=== PATIENT | male | born 1990 | race Caucasian/White ===

== ENCOUNTER 2020-01-11 11:36 | Emergency (ER) | payer SELFPAY ==
--- NOTE | ~2020-01-11 | XR_ITS ---
XR chest 2V DATE: 01/11/2020 12:03 INDICATION: Fever, cough, body aches for 4 hours TECHNIQUE: PA and lateral views COMPARISON: 04/08/2019 2 view chest FINDINGS: Normal heart size. No hilar or mediastinal enlargement. No pulmonary infiltrate or consolid ation, pleural effusion or pulmonary vascular congestion or pneumothorax. IMPRESSION: No active cardiopulmonary disease Reviewed, dictated and finalized at location A.
--- NOTE | 2020-01-11 11:43 | ED.FEVER ---
HPI - Fever General Chief Complaint: Fever Stated Complaint: Body Aches - Fever Time Seen by Provider: 01/11/20 11:42 Source: patient and RN notes reviewed Mode of arrival: other Limitations: no limitations History of Present Illness HPI Narrative: Pt is a 29 y/o male who presents to the ED with c/o a 103 degree fever that began this morning. Pt notes that he took some Dayquil that minimally relieved his fever. Pt also reports 5/10 body aches and a dry cough, but denies chills, sore throat, chest pain, dyspnea, nasal discharge, nausea, vomiting, and dysuria. MD elicited complaint: fever Onset (ago): hour(s) Measured temperature: 39.4 C Associated symptoms: myalgias and cough (dry) Treatments prior to arrival fever: cold medicine Related Data Allergies Allergy/AdvReac Type Severity Reaction Status Date / Time Sulfa (Sulfonamide Allergy Mild Rash Verified 01/11/20 11:53 Antibiotics) Review of Systems Review of Systems: All systems reviewed & are unremarkable except as noted in HPI and below Constitutional: Constitutional: Denies chills and Reports fever(s) (103 degrees) ENT: Denies nasal discharge and Denies sore throat Cardiovascular: Cardiovascular: Denies chest pain Respiratory: Respiratory: Denies dyspnea Gastrointestinal: Gastrointestinal: Denies nausea and Denies vomiting Genitourinary: Genitourinary: Denies dysuria Musculoskeletal: Musculoskeletal: Reports myalgias PMFSH Past Medical History Medical History (Updated 01/12/20 @ 00:01 by Jocelin Mcpherson) Hand fracture, right MRSA (methicillin resistant Staphylococcus aureus) right lower leg Osteomyelitis Pneumonia Surgical History Surgical History (Updated 01/11/20 @ 11:57 by Patrica Shields) History of orthopedic surgery right hand, right leg Social History Social History (Updated 01/11/20 @ 11:57 by Patrica Shields) Smoking packs per day: 1 Smoking cigarettes per day: 20.0 Years smoked: 8 Smoking pack-years: 8.00 Smoking status: Former smoker Tobacco type: cigarettes Exam Const: General: no acute distress and well developed Orientation/consciousness: oriented to person, oriented to place, oriented to time and patient oriented x3 HENMT: Head: normocephalic Ears: external ears normal General nose exam: Normal external nose present Eyes: General: appearance normal, both eyes and all related structures Conjunctivae: conjunctivae normal Neck: Neck: normal visual inspection and full ROM Chest: Chest palpation & inspection: normal inspection of the chest and no tenderness Resp: Effort & Inspection: normal respiratory effort Auscultation: clear to auscultation bilaterally Cardio: Rate: tachycardic Rhythm: regular rhythm Skin: General skin exam: normal color and turgor normal Neuro: General: oriented to person, oriented to place, oriented to time and patient oriented x3 Cognition (Neuro): normal cognition Extrem: General: normal to inspection, full ROM and no pedal edema Psych: Appearance: grossly normal Mental Status: mental status grossly normal Affect: normal affect Course Reevaluation(s) Reevaluation #1: Informed patient that his symptoms may be due to viral illness, possibly flu, although rapid flu test is negative at this time. Will treat with Tamiflu empirically. Instructed patient to return if symptoms worsen. Date: 01/11/20 Time: 14:01 Vital Signs Vital signs: Vital Signs Temperature 39.1 C H 01/11/20 11:50 Pulse Rate 112 H 01/11/20 11:50 Respiratory Rate 20 01/11/20 11:50 Blood Pressure 140/70 01/11/20 11:50 Pulse Oximetry 100 01/11/20 11:50 Temperature 37.6 C H 01/11/20 13:46 Pulse Rate 102 H 01/11/20 13:46 Respiratory Rate 18 01/11/20 13:46 Blood Pressure 136/73 01/11/20 13:46 Pulse Oximetry 97 01/11/20 13:46 MDM - Fever Lab Data Result diagrams: 01/11/20 12:15 01/11/20 12:15 Labs: Lab Results 01/11/20 01/11/20
[2020-01-11 11:50] VITALS: BP 140/70; PULSE 112; RESP 20; TEMP 39.1; O2SAT 100
[2020-01-11 12:22] LABS: Basophils Absolute Auto 0.1 K/mm3 (0.0-0.1); Basophils Percent Auto 0.8 % (0.2-1.2); Eosinophils Absolute Auto 0.1 K/mm3 (0-0.3); Hematocrit 47.6 % (42.0-52.0); Hemoglobin 15.6 g/dL (14.0-18.0); Immature Granulocyte Absolute 0.03 K/mm3 (0.00-0.031); Immature Granulocyte Percent A 0.3 % (0-0.5); Lymphocytes Absolute Auto 0.58 K/mm3 (0.9-3.2); Lymphocytes Percent Auto 6.6 % (18.3-44.2); Mean Corpuscular HGB Conc 32.8 g/dl (32-36); Mean Corpuscular Hemoglobin 26.2 pg (26-34); Mean Platelet Volume 10.2 fl (7.4-10.4); Monocytes Absolute Auto 0.9 K/mm3 (0.1-0.6); Monocytes Percent Auto 10.3 % (2.6-8.5); Neutrophils Absolute Auto 7.1 K/mm3 (1.3-6.7); Platelet Count Result 188 k/mm3 (150-375); Red Blood Count 5.95 M/mm3 (4.6-6.20); Red Cell Distribution Width 13.2 % (11.5-14.5); White Blood Count 8.8 K/mm3 (4.5-10.0)
[2020-01-11] MEDS: SODIUM CHLORIDE 0.9% IV 1,000 ML 999 ML IV CONT (12:31)
[2020-01-11] MEDS: IBUPROFEN 400 MG TABLET 800 MG PO (12:31)
[2020-01-11 12:33] LABS: Blood Urea Nitrogen 9 mg/dL (9-20); Calcium 9.5 mg/dL (8.4-10.2); Carbon Dioxide 27 mmol/L (22-30); Chloride 103 mmol/L (98-107); Estimated CRCL calculation 118 ml/min; Estimated Glomerular Filt Rate > 60; Glucose 95 mg/dL (75-110); Potassium 4.2 mmol/L (3.4-5.0); Sodium 137 mmol/L (137-145)
[2020-01-11 13:01] VITALS: TEMP 37.6
[2020-01-11 13:14] LABS: Add Urine Microscopic? NO; Appearance Urine Clear (Clear); Bilirubin Urine Negative (Negative); Blood Urine Negative (Negative); Color Urine Yellow (Yellow); Glucose Urine UA Negative (Negative); Ketones Urine Negative (Negative); Leukocyte Esterase Ur Negative LEU/UL (Negative); Nitrate Urine Negative (Negative); Protein Urine Negative (Negative); Specific Grav Ur 1.019 (1.001-1.035); Urobilinogen Urine Negative mg/dL (<2.0)
[2020-01-11 13:46] VITALS: BP 136/73; PULSE 102; RESP 18; TEMP 37.6; O2SAT 97
== END 2020-01-11 14:50 | disposition home or self-care (01) ==
PROVIDERS: Emergency Provider Emergency Medicine
DX: R50.9 Fever, unspecified (principal); F17.210 Nicotine dependence, cigarettes, uncomplicated
CPT/HCPCS: 36415; 71046; 80048; 81003; 85025; 87040; 87081; 87804; 87880; 96360; 99283; A9270; J7030

== ENCOUNTER 2021-11-27 07:04 | Emergency (ER) | payer OTHER, SELFPAY ==
[2021-11-27] VITALS (7 sets, daily range): BP systolic 121–163; BP diastolic 57–79; PULSE 99–112; RESP 18–25; TEMP 38; O2SAT 97–100
--- NOTE | ~2021-11-27 | XR_ITS ---
EXAMINATION: XR chest 1V portable EXAM DATE: 11/27/2021 07:28 INDICATION: Cough and shortness of breath. TECHNIQUE: Portable AP frontal chest x-ray was obtained. Comparison is made to prior examination from 01/11/2020. FINDINGS: The lungs are clear. There are no pleural effusions. Cardiomediastinal silhouette is norm al. There is no pneumothorax suspected. The bones and soft tissues are unremarkable. IMPRESSION: Normal chest x-ray exam. Reviewed, dictated and finalized at location A. F [employer]ER [employer] SCREENER IMPRESSION: Normal chest x-ray exam.
--- NOTE | 2021-11-27 07:16 | ECG_ITS ---
Measurements Intervals [place] Rate: 102 P: 55 AL: 161 QRS: 12 QRSD: 98 T: 8 QT: 306 QTc: 400 Interpretive Statements SINUS TACHYCARDIA CONSIDER INFERIOR INFARCT, AGE INDETERMINATE BASELINE WANDER- I, III ABNORMAL ECG Electronically Signed On 11-27-2021 9:23:23 [employer] FIGHTER by Daryl Adam D.O.
[2021-11-27 07:44] LABS: Basophils Absolute Auto 0.1 K/mm3 (0.0-0.1); Basophils Percent Auto 0.9 % (0.2-1.2); Eosinophils Absolute Auto 0.1 K/mm3 (0-0.3); Eosinophils Percent Auto 1.5 % (0-4.4); Hematocrit 44.3 % (42.0-52.0); Hemoglobin 14.8 g/dL (14.0-18.0); Immature Granulocyte Absolute 0.02 K/mm3 (0.00-0.031); Immature Granulocyte Percent A 0.3 % (0-0.5); Lymphocytes Absolute Auto 0.54 K/mm3 (0.9-3.2); Mean Corpuscular HGB Conc 33.4 g/dl (32-36); Mean Corpuscular Hemoglobin 27.4 pg (26-34); Mean Corpuscular Volume 81.9 fl (80-100); Mean Platelet Volume 9.4 fl (7.4-10.4); Monocytes Absolute Auto 0.9 K/mm3 (0.1-0.6); Monocytes Percent Auto 13.1 % (2.6-8.5); Neutrophils Absolute Auto 5.1 K/mm3 (1.3-6.7); Neutrophils Percent Auto 76.2 % (45.5-73.1); Platelet Count Result 177 k/mm3 (150-375); Red Blood Count 5.41 M/mm3 (4.6-6.20); Red Cell Distribution Width 13.2 % (11.5-14.5); White Blood Count 6.7 K/mm3 (4.5-10.0)
--- NOTE | 2021-11-27 07:58 | ED.SOB ---
HPI - SOB/Dyspnea General Chief Complaint: Shortness of Breath/Dyspnea Stated Complaint: shortness of breath Time Seen by Provider: 11/27/21 07:51 Source: patient Mode of arrival: ambulatory Limitations: no limitations History of Present Illness HPI Narrative: 31-year-old male Former smoker History of hypertension but otherwise usually healthy although he did have pneumonia about 2 years ago Presents for a 2-day history of body aches, headache, subjective fever, cough with scanty phlegm production, mild shortness of breath No flu vaccine, no Covid vaccine Related Data Home Medications Medication Instructions Recorded Confirmed losartan-hydrochlorothiazide tablet 11/27/21 omega-3 fatty acids-vitamin E cap 11/27/21 [Fish Oil] Allergies Allergy/AdvReac Type Severity Reaction Status Date / Time Sulfa (Sulfonamide Allergy Mild Rash Verified 11/27/21 07:18 Antibiotics) Review of Systems Review of Systems: All systems reviewed & are unremarkable except as noted in HPI and below Constitutional: Constitutional: Reports no additional constitutional complaints, Reports chills, Reports fatigue, Reports fever(s), Denies headache(s) and Reports weakness Eyes: Eyes: Reports no additional eye complaints and Denies change in vision ENT: Denies headache(s), Reports nasal congestion and Denies sore throat Cardiovascular: Cardiovascular: Denies chest pain and Denies dyspnea Respiratory: Respiratory: Reports cough and Reports dyspnea Gastrointestinal: Gastrointestinal: Denies abdominal pain, Denies diarrhea and Denies vomiting Genitourinary: Genitourinary: Denies dysuria and Denies urinary frequency Musculoskeletal: Musculoskeletal: Reports back pain, Reports myalgias, Denies deformity, Denies arthralgias, Denies joint swelling and Denies numbness Integumentary/Breasts: Skin/Breast: Denies rash and Denies wounds Neurologic: Reports headache(s), Denies focal weakness and Denies numbness Psychiatric: Psychiatric: Reports no additional psychiatric complaints Endocrine: Endocrine: Reports no additional endocrine complaints Hematologic/Lymphatic: Hematologic/Lymphatic: Reports no additional hematologic/lymphatic complaints Allergic/Immunologic: Allergic/Immunologic: Reports no additional allergic/immunologic complaints PMF Past Medical History Medical History Hand fracture, right MRSA (methicillin resistant Staphylococcus aureus) right lower leg Osteomyelitis Pneumonia Surgical History Surgical History History of orthopedic surgery right hand, right leg Social History Social History Smoking packs per day: 1 Smoking cigarettes per day: 20.0 Years smoked: 8 Smoking pack-years: 8.00 Smoking status: Former smoker Tobacco type: cigarettes Exam Const: General: cooperative, no acute distress and alert Nutritional Appearance: obese Orientation/consciousness: patient oriented x3 (alert) HENMT: Head: normal to inspection, normocephalic and atraumatic Ears: external ears normal General nose exam: no epistaxis Mouth: Yes Normal oral and palatal mucosa present and Yes moist mucous membranes Eyes: Conjunctivae: conjunctivae normal EOM: EOMs intact bilaterally Neck: Neck: normal visual inspection, supple and no JVD Resp: Effort & Inspection: normal respiratory effort and not labored Auscultation: clear to auscultation bilaterally, no rales, no rhonchi, no wheezes and other (BS =) Cardio: Rate: regular rate Rhythm: regular rhythm Heart sounds: no murmurs Skin: General skin exam: normal color and no rashes or lesions noted Rashes: no rashes Neuro: General: patient oriented x3 (alert) and moves all extremities Speech: normal speech Extrem: General: normal to inspection Psych: Affect: normal affect Course Course Emergency
[2021-11-27 08:14] LABS: Alanine Aminotransferase 100 U/L (4-50); Albumin Level 4.4 g/dL (3.5-5.1); Alkaline Phosphatase 68 U/L (38-126); Anion Gap 11 mmol/L (8-16); Aspartate Amino Transferase 69 U/L (17-59); Bilirubin,Total 0.7 mg/dL (0.2-1.3); Blood Urea Nitrogen 12 mg/dL (9-20); Calcium 9.4 mg/dL (8.4-10.2); Carbon Dioxide 22 mmol/L (22-30); Chloride 103 mmol/L (98-107); Estimated CRCL calculation 116 ml/min; Estimated Glomerular Filt Rate > 60; Glucose 114 mg/dL (65-110); Sodium 136 mmol/L (137-145)
[2021-11-27 08:17] LABS: D Dimer 0.31 ug/mL (<0.48)
[2021-11-27 19:36] LABS: SARS-CoV-2 RNA PCR Positive
== END 2021-11-27 10:52 | disposition home or self-care (01) ==
PROVIDERS: Emergency Provider Emergency Medicine; PCP Physician Assistant
DX: U07.1 COVID-19 (principal); I10 Essential (primary) hypertension; Z87.01 Personal history of pneumonia (recurrent); Z86.14 Personal history of Methicillin resistant Staphylococcus aureus infection; Z87.891 Personal history of nicotine dependence; R94.31 Abnormal electrocardiogram [ECG] [EKG]; R00.0 Tachycardia, unspecified
CPT/HCPCS: 36415; 71045; 80053; 85025; 85380; 87804; 93005; 99284; C9803; U0003; U0005

== ENCOUNTER 2023-11-08 05:31 | Emergency (ER) | payer OTHER, SELFPAY ==
--- NOTE | ~2023-11-08 | XR_ITS ---
XR chest 2V DATE: 11/08/2023 06:45 INDICATION: Cough, congestion TECHNIQUE: PA and lateral views COMPARISON: 11/27/2021 portable AP chest FINDINGS: Normal heart size. No hilar or mediastinal enlargement. No pulmonary infiltrate or consolid ation, pleural effusion or pulmonary vascular congestion or pneumothorax is detected. IMPRESSION: No active cardiopulmonary disease Reviewed, dictated and finalized at location A. P LEADER
[2023-11-08 05:34] VITALS: BP 147/84; PULSE 89; RESP 20; TEMP 36.9; O2SAT 96
[2023-11-08 05:44] VITALS: O2SAT 96
[2023-11-08 05:45] VITALS: PULSE 81; RESP 21; O2SAT 95
--- NOTE | 2023-11-08 06:27 | ED.GENADULT ---
HPI - General Adult General Chief complaint: Upper Respiratory Infection Stated complaint: flu like symptoms Time Seen by Provider: 11/08/23 06:05 History of Present Illness HPI narrative: Patient is a 33-year-old gentleman who presents emergency department with chief complaint of flu-like symptoms. The patient reports that he has been having generalized body aches fever nausea and cough since Thursday the patient reports that he has had a cough it has been intermittently productive. Patient states he is concerned that he may have pneumonia or flu or COVID. Related Data Home Medications Medication Instructions Recorded Confirmed losartan 100 tablet 11/27/21 mg-hydrochlorothiazide 25 mg tablet omega-3 fatty acids-vitamin E cap 11/27/21 1,000 mg capsule Allergies Allergy/AdvReac Type Severity Reaction Status Date / Time Sulfa (Sulfonamide Allergy Mild Rash Verified 11/08/23 05:47 Antibiotics) Review of Systems Review of Systems: A 10 system review of systems was completed on the patient and is negative except for what is stated in the HPI. Nursing and ancillary documentation was reviewed. [facility] Past Medical History Medical History Hand fracture, right MRSA (methicillin resistant Staphylococcus aureus) right lower leg Osteomyelitis Pneumonia Surgical History Surgical History History of orthopedic surgery right hand, right leg Social History Social History Smoking packs per day: 1 Smoking cigarettes per day: 20.0 Years smoked: 8 Smoking pack-years: 8.00 Smoking status: Former smoker Tobacco type: cigarettes Exam Narrative: GENERAL: Well-appearing, well-nourished, and in no acute distress. HEAD: Normocephalic, atraumatic. EYES: PERRLA and EOMI. ENT: Nares clear, no rhinorrhea or epistaxis. Mucous membranes moist. NECK: Supple. CHEST: Clear to auscultation. No respiratory distress. HEART: Regular rate and rhythm. No murmur heard. Normal peripheral pulses. ABDOMEN: Soft, nontender, nondistended, normal active bowel sounds. EXTREMITIES: Normal range of motion. No edema. SKIN: Warm, dry, no rash. NEURO: No focal deficits. Alert and oriented x3. PSYCH: Normal mood and affect. Course Vital Signs Vital signs: Vital Signs Temperature 36.9 C 11/08/23 05:34 Pulse Rate 89 11/08/23 05:34 Respiratory Rate 20 11/08/23 05:34 Blood Pressure 147/84 H 11/08/23 05:34 Pulse Oximetry 96 11/08/23 05:34 Oxygen Delivery Room Air 11/08/23 05:34 Temperature 36.9 C 11/08/23 05:34 Pulse Rate 81 11/08/23 05:45 Respiratory Rate 21 H 11/08/23 05:45 Blood Pressure 147/84 H 11/08/23 05:34 Pulse Oximetry 95 11/08/23 05:45 Oxygen Delivery Room Air 11/08/23 05:44 Medical Decision Making MDM Narrative Medical decision making narrative: Differential diagnosis includes pneumonia, viral syndrome, upper respiratory infection, Patient is positive for influenza B The patient was offered Tamiflu and the patient has opted not to do Tamiflu as his symptoms have been ongoing for 3 days. Vital Signs Vital Signs: Vital Signs Temperature 36.9 C 11/08/23 05:34 Pulse Rate 89 11/08/23 05:34 Respiratory Rate 20 11/08/23 05:34 Blood Pressure 147/84 H 11/08/23 05:34 Pulse Oximetry 96 11/08/23 05:34 Oxygen Delivery Room Air 11/08/23 05:34 Temperature 36.9 C 11/08/23 05:34 Pulse Rate 81 11/08/23 05:45 Respiratory Rate 21 H 11/08/23 05:45 Blood Pressure 147/84 H 11/08/23 05:34 Pulse Oximetry 95 11/08/23 05:45 Oxygen Delivery Room Air 11/08/23 05:44 Lab Data Labs: Lab Results 11/08/23 Range/Units 05:47 Influenza A (RT-PCR) Pending Influenza B (RT-PCR) Pending RSV (RT-PCR) Pending SARS-CoV-2 RNA (
[2023-11-08 06:30] LABS: Influenza A QL RT-PCR Negative (Negative); Influenza B QL RT-PCR Positive (Negative); RSV RNA, RT-PCR Negative (Negative); SARS-CoV-2 RNA PCR Negative (Negative)
[2023-11-08 06:40] VITALS: BP 146/86; PULSE 67; RESP 15; O2SAT 95
== END 2023-11-08 06:44 | disposition home or self-care (01) ==
PROVIDERS: Emergency Provider Emergency Medicine; PCP Emergency Medicine
DX: J10.1 Influenza due to other identified influenza virus with other respiratory manifestations (principal); Z86.14 Personal history of Methicillin resistant Staphylococcus aureus infection; Z87.01 Personal history of pneumonia (recurrent); Z87.891 Personal history of nicotine dependence
CPT/HCPCS: 71046; 87637; 99283

== ENCOUNTER 2024-01-11 08:02 | Emergency (ER) | payer OTHER, SELFPAY ==
--- NOTE | ~2024-01-11 | US_ITS ---
EXAMINATION: US venous doppler LE RT DATE: 01/11/2024 09:09 INDICATION: Right lower limb swelling. TECHNIQUE: Grayscale ultrasound images without and with compression and Doppler ultrasound images of the right lower extremity veins were obtained. COMPARISON: None. FINDINGS: The visualized portions of right common femoral vein, profunda (deep) femoral vein, femoral vein, pop liteal vein, peroneal veins, posterior tibial veins, and greater saphenous vein outflow are patent. IMPRESSION: 1. No deep venous thrombosis. Reviewed, dictated and finalized at location A.
--- NOTE | ~2024-01-11 | XR_ITS ---
EXAMINATION: XR tibia fibula RT 2V DATE: 01/11/2024 09:17 INDICATION: Intermittent throbbing at the right lower leg TECHNIQUE: AP and lateral views of the right tibia and fibula were obtained. COMPARISON: None. FINDINGS: Bone alignment is normal. No fracture. Visualized joint spaces at the knee and ankle appear normal. N o cortical erosions or periosteal reaction. No ankle joint effusion. Mild soft tissue swelling with s ome subcutaneous edema anterior to the mid tibial diaphysis. IMPRESSION: 1. No osseous abnormality. Reviewed, dictated and finalized at location B. IMPRESSION: 1. No osseous abnormality.
[2024-01-11 08:05] VITALS: BP 148/89; PULSE 92; RESP 18; TEMP 36.7; O2SAT 96
[2024-01-11 08:36] LABS: Basophils Absolute Auto 0.1 K/mm3 (0.0-0.1); Basophils Percent Auto 1.3 % (0.2-1.2); Eosinophils Absolute Auto 1.1 K/mm3 (0-0.3); Eosinophils Percent Auto 13.2 % (0-4.4); Hemoglobin 14.6 g/dL (14.0-18.0); Immature Granulocyte Absolute 0.03 K/mm3 (0.00-0.031); Immature Granulocyte Percent A 0.4 % (0-0.5); Mean Corpuscular HGB Conc 32.4 g/dl (32-36); Mean Corpuscular Volume 80.1 fl (80-100); Mean Platelet Volume 10.3 fl (7.4-10.4); Monocytes Absolute Auto 0.8 K/mm3 (0.1-0.6); Neutrophils Absolute Auto 4.2 K/mm3 (1.3-6.7); Neutrophils Percent Auto 49.1 % (45.5-73.1); Platelet Count Result 224 k/mm3 (150-375); Red Blood Count 5.62 M/mm3 (4.6-6.20); Red Cell Distribution Width 13.6 % (11.5-14.5); White Blood Count 8.5 K/mm3 (4.5-10.0)
[2024-01-11 08:49] LABS: Alanine Aminotransferase 59 U/L (6-50); Albumin Level 4.6 g/dL (3.5-5.1); Alkaline Phosphatase 80 U/L (38-126); Anion Gap 6 mmol/L (8-16); Aspartate Amino Transferase 38 U/L (17-59); Bilirubin,Total 0.7 mg/dL (0.2-1.3); Blood Urea Nitrogen 12 mg/dL (9-20); CRP 0.7 mg/dL (<1.0); Calcium 9.8 mg/dL (8.4-10.2); Carbon Dioxide 30 mmol/L (22-30); Chloride 104 mmol/L (98-107); Estimated CRCL calculation 156 ml/min; Estimated Glomerular Filt Rate > 60; Glucose 106 mg/dL (65-110); Potassium 4.1 mmol/L (3.4-5.0); Sodium 140 mmol/L (137-145)
[2024-01-11 09:17] LABS: Erythrocyte Sedimentation Rate 16 mm/hr (0-20)
--- NOTE | 2024-01-11 10:14 | ED.LOWEXIN ---
HPI - Extremity Injury (Lower) General Chief Complaint: Extremity Injury, Lower Stated Complaint: right leg swelling, painful Time Seen by Provider: 01/11/24 08:08 History of Present Illness HPI Narrative: Patient is a 33-year-old male who presents ER with concerns about swelling to his right lower extremity below the knee. Reports history of multifocal osteomyelitis as a child. He has noticed swelling of the last couple days and is concerned. No redness area. No trauma. No pain. Denies fevers or chills or sweats. He has been noticing lines are his socks rest. No increased salt intake. No additional concerns. Related Data Home Medications Medication Instructions Recorded Confirmed losartan 100 tablet 11/27/21 mg-hydrochlorothiazide 25 mg tablet omega-3 fatty acids-vitamin E cap 11/27/21 1,000 mg capsule Allergies Allergy/AdvReac Type Severity Reaction Status Date / Time Sulfa (Sulfonamide Allergy Mild Rash Verified 11/08/23 05:47 Antibiotics) Review of Systems Review of Systems: All systems reviewed & are unremarkable except as noted in HPI and below Constitutional: Constitutional: Reports no additional constitutional complaints ENT: Reports system reviewed and no additional complaints, except as documented Cardiovascular: Cardiovascular: Reports no additional cardiovascular complaints Respiratory: Respiratory: Reports no additional respiratory complaints Musculoskeletal: Musculoskeletal: Denies back pain, Denies arthralgias, Denies joint swelling and Denies muscle cramps Comments: Right leg swelling PMFSH Past Medical History Medical History Hand fracture, right MRSA (methicillin resistant Staphylococcus aureus) right lower leg Osteomyelitis Pneumonia Surgical History Surgical History History of orthopedic surgery right hand, right leg Social History Social History Smoking packs per day: 1 Smoking cigarettes per day: 20.0 Years smoked: 8 Smoking pack-years: 8.00 Smoking status: Former smoker Tobacco type: cigarettes Exam Narrative: GENERAL: Well-appearing, well-nourished, and in no acute distress. HEAD: Normocephalic, atraumatic. ENT: Mucous membranes moist. CHEST: Clear to auscultation. No respiratory distress. HEART: Regular rate and rhythm. Normal peripheral pulses. EXTREMITIES: Normal range of motion. 1+ edema right lower extremity compared to left. negative Amina sign. SKIN: Warm, dry, no rash. NEURO: Alert and oriented x3. PSYCH: Normal mood and affect. Course Course Emergency Course: Patient resting comfortably. Discussed imaging and lab results. Patient felt appropriate for discharge home. Recommend follow-up with PCP. Vital Signs Vital signs: Vital Signs Temperature 98.0 F 01/11/24 08:05 Pulse Rate 92 01/11/24 08:05 Respiratory Rate 18 01/11/24 08:05 Blood Pressure 148/89 H 01/11/24 08:05 Pulse Oximetry 96 01/11/24 08:05 Oxygen Delivery Room Air 01/11/24 08:05 Temperature 98.0 F 01/11/24 08:05 Pulse Rate 92 01/11/24 08:05 Respiratory Rate 18 01/11/24 08:05 Blood Pressure 148/89 H 01/11/24 08:05 Pulse Oximetry 96 01/11/24 08:05 Oxygen Delivery Room Air 01/11/24 08:05 MDM - Extremity Injury (Lower) Lab Data 01/11/24 08:29 01/11/24 08:29 Labs: Lab Results 01/11/24 Range/Units 08:29 WBC 8.5 (4.5-10.0) K/mm3 RBC 5.62 (4.6-6.20) M/mm3 Hgb 14.6 (14.0-18.0) g/dL Hct 45.0 (42.0-52.0) % MCV 80.1 (80-100) fl MCH 26.0 (26-34) pg MCHC 32.4 (32-36) g/dl RDW 13.6 (11.5-14.5) % Plt Count 224 (150-375) k/mm3 MPV 10.3 (7.4-10.4) fl Immature Gran % (Auto) 0.4 (0-0.5) % Neut % (Auto) 49.1 (45.5-73.1) % Lymph % (Auto) 27.0 (
[2024-01-11 10:32] VITALS: BP 154/84; PULSE 74; RESP 16; TEMP 36.8; O2SAT 98
== END 2024-01-11 10:34 | disposition home or self-care (01) ==
PROVIDERS: Emergency Provider Emergency Medicine; PCP Emergency Medicine
DX: R60.0 Localized edema (principal); Z86.14 Personal history of Methicillin resistant Staphylococcus aureus infection; Z87.01 Personal history of pneumonia (recurrent); Z87.891 Personal history of nicotine dependence
CPT/HCPCS: 36415; 73590; 80053; 85025; 85652; 86140; 93971; 99284

== ENCOUNTER 2024-01-15 17:43 | Emergency (ER) | payer OTHER, SELFPAY ==
--- NOTE | ~2024-01-15 | CT_ITS ---
EXAMINATION: CT LE RT w con DATE: 01/15/2024 19:06 INDICATION: Osteomyelitis. Leg swelling and pain. TECHNIQUE: Computed tomography (CT) of the pelvis was performed with 100 cc Omnipaque 350 intravenous contrast. The dose-length product was 1390.47 mGy-cm. Automated exposure control and iterative recon struction technique were employed. COMPARISON: None FINDINGS: No cortical destruction, periosteal reaction or erosive change to suggest osteomyelitis. No evidence for acute fracture or traumatic malalignment. There is mild circumferential subcutaneous st randing of the middistal calf, suspicious for cellulitis. No abscess. No evidence for subcutaneous em physema. No intramuscular masses or fluid collections. IMPRESSION: 1. No evidence for osteomyelitis or abscess. Mild circumferential subcutaneous fat stranding of the c senior living, suspicious for cellulitis. Reviewed, dictated and finalized at location A. IMPRESSION: 1. No evidence for osteomyelitis or abscess. Mild circumferential subcutaneous fat stranding of the calf, suspicious for cellulitis.
[2024-01-15 17:45] VITALS: BP 178/81; PULSE 108; RESP 16; TEMP 35.8; O2SAT 96
--- NOTE | 2024-01-15 17:59 | ED.LOWEXIN ---
HPI - Extremity Injury (Lower) General Chief Complaint: Extremity Injury, Lower <Almaz Casillas PA-C - Last Filed: 01/15/24 18:57> Stated Complaint: right leg swelling and pain <Almaz Casillas PA-C - Last Filed: 01/15/24 18:57> Time Seen by Provider: 01/15/24 17:51 <Almaz Casillas PA-C - Last Filed: 01/15/24 18:57> History of Present Illness HPI Narrative: 33-year-old male with reported history of multifocal osteomyelitis when he was a child presents to the emergency department for right lower extremity edema and pain for the past few days. Patient was seen in our emergency department 4 days ago for the same symptoms. He had a negative workup at that time including a normal CRP, no leukocytosis, negative Doppler to the right lower extremity. He was discharged home advised to follow-up with PCP. States he follow-up is PCP ordered blood work yesterday including infectious markers and a D-dimer which was unremarkable. Patient states he was contacted by his PCP's office today advised to come to the ER for CT scan for further evaluation. The patient states that when he had multifocal osteomyelitis believes the child, presented similarly and he is concerned it is occurring again. He denies recent injury trauma, redness, fever, nausea vomiting, chest pain or shortness of breath. <Almaz Casillas PA-C - Last Filed: 01/15/24 18:57> Related Data Home Medications: Home Medications Medication Instructions Recorded Confirmed losartan 100 tablet 11/27/21 mg-hydrochlorothiazide 25 mg tablet omega-3 fatty acids-vitamin E cap 11/27/21 1,000 mg capsule <Almaz Casillas PA-C - Last Filed: 01/15/24 18:57> Allergies/Adverse Reactions: Allergies Allergy/AdvReac Type Severity Reaction Status Date / Time Sulfa (Sulfonamide Allergy Mild Rash Verified 11/08/23 05:47 Antibiotics) <KISHAN Henson Last Filed: 01/15/24 18:57> Review of Systems Review of Systems: CONSTITUTIONAL: Denies fever, chills, or sweats. EYES: Denies visual changes, redness, or discharge. ENT: Denies rhinorrhea, congestion, sore throat, or otalgia. CARDIOVASCULAR: Denies chest pain, palpitations, or edema. RESPIRATORY: Denies cough or dyspnea. GASTROINTESTINAL: Denies abdominal pain, nausea, vomiting, or diarrhea. GENITOURINARY: Denies dysuria or hematuria. SKIN: Denies rash or itching. MUSCULOSKELETAL: See HPI NEUROLOGIC: Denies headache, numbness, or weakness. PSYCHIATRIC: Denies anxiety or depression. <Almaz Casillas PA-C - Last Filed: 01/15/24 18:57> [facility] Past Medical History Medical History: Medical History Hand fracture, right MRSA (methicillin resistant Staphylococcus aureus) right lower leg Osteomyelitis Pneumonia <Almaz Casillas PA-C - Last Filed: 01/15/24 18:57> Surgical History Surgical History: Surgical History History of orthopedic surgery right hand, right leg <Almaz Casillas PA-C - Last Filed: 01/15/24 18:57> Social History Social History: Social History Smoking packs per day: 1 Smoking cigarettes per day: 20.0 Years smoked: 8 Smoking pack-years: 8.00 Smoking status: Former smoker Tobacco type: cigarettes <Almaz Casillas PA-C - Last Filed: 01/15/24 18:57> Exam Narrative: GENERAL: Well-appearing, well-nourished, and in no acute distress. HEAD: Normocephalic, atraumatic. EYES: PERRLA and EOMI. ENT: Nares clear, no rhinorrhea or epistaxis. Mucous membranes moist. NECK: Supple. CHEST: Clear to auscultation. No respiratory distress. HEART: Regular rate and rhythm. No murmur heard. Normal peripheral pulses. ABDOMEN: Soft, nontender, nondistended, normal active bowel sounds. EXTREMITIES: 1+ pitting edema to the right lower extremity when comp
[2024-01-15 18:22] LABS: Basophils Absolute Auto 0.2 K/mm3 (0.0-0.1); Basophils Percent Auto 1.1 % (0.2-1.2); Eosinophils Absolute Auto 0.7 K/mm3 (0-0.3); Eosinophils Percent Auto 5.4 % (0-4.4); Hemoglobin 15.5 g/dL (14.0-18.0); Immature Granulocyte Absolute 0.05 K/mm3 (0.00-0.031); Immature Granulocyte Percent A 0.4 % (0-0.5); Lymphocytes Absolute Auto 3.42 K/mm3 (0.9-3.2); Lymphocytes Percent Auto 26.1 % (18.3-44.2); Mean Corpuscular HGB Conc 32.3 g/dl (32-36); Mean Corpuscular Volume 80.5 fl (80-100); Mean Platelet Volume 10.1 fl (7.4-10.4); Monocytes Absolute Auto 1.2 K/mm3 (0.1-0.6); Monocytes Percent Auto 8.9 % (2.6-8.5); Neutrophils Absolute Auto 7.6 K/mm3 (1.3-6.7); Neutrophils Percent Auto 58.1 % (45.5-73.1); Platelet Count Result 265 k/mm3 (150-375); Red Blood Count 5.96 M/mm3 (4.6-6.20); Red Cell Distribution Width 13.9 % (11.5-14.5); White Blood Count 13.1 K/mm3 (4.5-10.0)
[2024-01-15 18:37] LABS: Anion Gap 10 mmol/L (8-16); Blood Urea Nitrogen 18 mg/dL (9-20); CRP 0.6 mg/dL (<1.0); Carbon Dioxide 30 mmol/L (22-30); Chloride 103 mmol/L (98-107); Estimated CRCL calculation 128 ml/min; Estimated Glomerular Filt Rate > 60; Glucose 89 mg/dL (65-110); Sodium 143 mmol/L (137-145)
[2024-01-15 19:13] LABS: Erythrocyte Sedimentation Rate 10 mm/hr (0-20)
[2024-01-15 19:35] LABS: NT Pro B Type Natriuretic Pept < 20 pg/mL (19.9-100)
[2024-01-15 20:32] VITALS: BP 145/79; PULSE 88; RESP 17; TEMP 36.5; O2SAT 97
== END 2024-01-15 20:33 | disposition home or self-care (01) ==
PROVIDERS: Physician Assistant; Emergency Provider Physician Assistant; PCP Emergency Medicine
DX: L03.115 Cellulitis of right lower limb (principal); Z86.14 Personal history of Methicillin resistant Staphylococcus aureus infection; Z87.01 Personal history of pneumonia (recurrent); Z87.891 Personal history of nicotine dependence
CPT/HCPCS: 36415; 73701; 80048; 83880; 85025; 85652; 86140; 99284; Q9967

== ENCOUNTER 2025-02-01 16:12 | Emergency (ER) | payer OTHER, SELFPAY ==
--- NOTE | ~2025-02-01 | XR_ITS ---
CHEST RADIOGRAPH, PA AND LATERAL CLINICAL HISTORY: lower extremity edema . COMPARISON: 11/08/2023 TECHNIQUE: PA and lateral views of the chest. FINDINGS The cardiomediastinal silhouette is unremarkable. The lungs are clear. Visualized osseous structures and soft tissues are unremarkable. IMPRESSION: No focal infiltrate or effusion. Reviewed, dictated and finalized at location A.
[2025-02-01 16:34] VITALS: BP 158/90; PULSE 62; RESP 18; TEMP 36.3; O2SAT 97
--- OUTSIDE RECORDS SUMMARY | 2025-02-01 16:44 | XMS_ITS | CONTINUITY OF CARE DOCUMENT ---
Author Name luisito pengjacqueline Address Unknown Organization [facility] Address [address] [address] [place] [address] Phone [phone] Care Team Providers Care Track Production Engineer Name Role Phone Brian LAINEZ, Nkechi Unavailable Gema Cassidy MD Unavailable GEMA CASSIDY MD Unavailable [phone] PROBLEMS Condition Status Date Provider Notes Hypertension active Yefri Clinton Lower extremity edema, right leg active Cody Torres MD Family hx of heart disease active Nkechi lee MD Hyperlipidemia completed - Nkechi Torres MD ENCOUNTERS Date Type Provider Location Encounter Diag nosis - In-person encounter Office Visit Nkechi Torres MD [facility] - In-person encounter Office Visit Nkechi Torres MD [facility] HyperlipidemiaLower extremity edema, right legFamily hx of heart disease VITAL SIGNS Date Observation Value Provider Body Mass Index (Ratio) 39.80 kg/m2 Sukhjinder Torres MD blood pressure, cuff size large Alnozo Macias blood pressure, diastolic 78 mm[Hg] Alonzo Macisa blood pressure, systolic 122 mm[Hg] Sergey Macias oxygen saturation, oximetry 97 % Lydia Macias weight E&M 310 [lb_av] Lydia Macias pulse rate 99 /min Lydia Macias respiratory rate E&M 12 /min Lydia Macias height E&M 74 [in_i] Lydia Macias Body Mass Index (Ratio) 39.80 kg/m2 Sukhjinder Torres MD blood pressure, diastolic 87 mm[Hg] Li nkLogic blood pressure, systolic 125 mm[Hg] Leslie kLogic blood pressure, cuff size regular [facility] blood pressure, diastolic 87 mm[Hg] [facility] blood pressure, systolic 125 mm[Hg] [facility] pulse rate 69 /min Wyatt y oxygen saturation, oximetry 97 % [facility] height E&M 74 [in_i] Wyatt y respiratory rate E&M 14 /min [facility] weight E&M 310 [lb_av] Wyatt y ALLERGIES Allergy Name Onset Date Reaction Criticality Status SULFUR Low Criticality active HISTORY OF MEDICATION USE Medication Status Instructions Dates Provider Indications Com ments pregabalin 150 mg capsule active TAKE 1 CAPSULE BY MOUTH TWICE DAILY losartan-hydrochloro thiazide 100-25 mg tablet active TAKE 1 TABLET BY MOUTH EVERY DAY IN THE MORNING cyclobenzaprine 10 mg tablet active TAKE 1 TABLET BY MOUTH EVERY DAY AT BEDTIME hydrocodone-acetamin ophen 5-325 mg tablet active TAKE 1 TABLET BY MOUTH TWICE DAILY NEEDED amlodipine 5 mg tablet active TAKE 1 TABLET BY MOUTH EVERY DAY IN THE MORNING SOCIAL HISTORY Date Observation Value Provider cigarette use yes Yefri Clinton smoking status Former smoker Yefri Pacheco i cigarette use [facility] Former smoker [facility] ricardo INSURANCE PROVIDERS Payer name Policy type / Coverage type Rahel red republican ID ALLIED BENEFITS INS Commercial insurance company [id number] ADVANCE DIRECTIVES Name Date DISCUSSED - NO DECISION MADE TREATMENT PLAN Date Name Performer Cardiology: O rders: V enous Doppler Bilateral LE - Reflux (CPT-34303) C omplete Echo (78551) R enal Artery Duplex (CPT-07875) Yefri Clinton Cardiology: O rders: E KG (CPT-54458) C omplete Echo (17374) R enal Artery Duplex (CPT-04488) BP today: 125/87 Yefri Clinton Date Name Renal Artery Duplex Complete Echo Venous Doppler Bilat eral LE - Reflux HISTORY OF PROCEDURES Procedure Date Procedure Name Provider Procedure Notes S tatus EKG Nkechi Torres MD completed
--- OUTSIDE RECORDS SUMMARY | 2025-02-01 16:44 | XMS_ITS | Clinical Summary ---
Author Organization [facility] on Address [address] [place] [address] Phone Care Team Providers Care Die Machine Operator Name Role Phone Unavailable Primary Care Provider Unavailabl e Encounters Date Type Department Care Team Description 12/27/2024 External Device Data [facility] ABSTRACTION Provider, Abstract 11/23/2024 External Device Data [facility] ABSTRACTION Provider, Abstract 11/22/2024 External Device Data [facility] ABSTRACTION Provider, Abstract 11/15/2024 External Device Data [facility] ABSTRACTION Provider, Abstract from Last 3 Months Social History Tobacco Use Types Packs/Day Years Used Date Smoking Tobacco: Never Assessed Sex and Gender Information Value Date Recorded Sex Assigned at Not on file 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
--- OUTSIDE RECORDS SUMMARY | 2025-02-01 16:45 | XMS_ITS | Data Portability ---
Author Organization DEBORAH Julio LAURA Address [address] [place] [address] Assessment Encounter Date Assessment Date Assessment LastModified by Organization Details LastModified Time 02/02/2024 02/02/2024 Will get Davy srinivasan Not available 02/02/2024 12:19:03 Plan of Treatment Reminders Order Date Submit Date Provider Last Modified By Organization Details Last Modified Time Details Appointments None recorded . Lab lipid panel, serum 2023 024 [facility], [address] [place] [address], [place] [address], [place], [address], 4 09:41:40 PSA, total, serum or plasma 2023 024 [facility], [address] [place] [address], [facility] [address], [place], [address], 4 15:11:33 CBC 2023 024 [facility], [address] [place] [address], [facility] [address], [place], [address], 4 06:19:00 ESR (erythro cyte sediment ation rate), blood 2023 024 [facility], [address] [place] [address], [facility] [address], [place], [address], 4 06:19:00 ESR (erythro cyte sediment ation rate), blood 2023 024 [facility], [address], [place], [address], 4 06:19:31 CMP, serum or plasma 2023 024 [facility], [address] [address], [address], [place], [address], 4 20:09:03 CBC 2023 024 [facility], [address], [place], [address], 4 20:09:04 urinalys is complete , reflex culture 2023 024 [facility], [address] [facility] [address], [address], [place], [address], 4 07:17:52 lipid panel, serum 2023 024 [facility], [address], [address], [place], [address], 4 20:09:03 Referral None recorded . Procedures None recorded . Surgeries None recorded . Imaging CT, abdomen + pelvis, w/ contrast 2023 024 [facility] ([facility]), [address] [place], [address], 4 10:02:34 US, doppler, venous 2023 024 [facility] ([facility]), [address] [place], [address], 4 15:49:43 US, doppler, arterial 2023 024 [facility] ([facility]), [address] [place], [address], 4 13:37:43 Medication Orders amlodipi ne 5 mg tablet 2023 024 [id number], [address] [place], [place], [id number], 4 18:37:23 losartan 100 mg-hydro chloroth iazide 25 mg tablet 2023 024 [id number], [address] [place], [place], [id number], 4 13:05:11 hydrocod one 5 mg-aceta minophen 325 mg tablet 2023 024 [facility] #48149, [address] [place], [place], [id number], 4 10:55:47 cycloben zaprine 10 mg tablet 2023 [facility], [address] [place], [place], [id number], 4 16:42:58 Lyrica 150 mg capsule 2023 024 [facility] #[id number], [address] [place], [place], [id number], 4 10:55:48 amlodipi ne 5 mg tablet 2023 024 [facility] #24159, [address] [place], [place], [id number], 4 10:55:48 losartan 100 mg-hydro chloroth iazide 25 mg tablet 2023 024 [facility] #[id number] [place], [place], [id number], 10:55:47 Patient TargetsNo targets recorded. Patient Instructions Encounter Date Encounter Id Patient Instructions Last Modified By Organization Details Last Modified Time 11/19/2023 [id number] A healthy lifestyle: care instructions kfarroll Not available 11/19/2023 10:55:39 dash diet: care instructions kfarroll Not available 11/19/2023 11:06:11 02/18/2024 [id number] A healthy lifestyle: care instructions kfarroll Not available 02/18/2024 10:20:42 06/06/2024 [id number] A healthy lifestyle: care instructions kfarroll Not available 06/06/2024 17:20:34 Reason for Referral None Reported. Results Created Date Observation Date Name Description Value Unit Range Abnormal Flag Note LastModifiedBy Organization Detail LastModifiedTime 11/19/1911/19/2023 LIPID PANEL cholesterol, total 215 mg/dL 100-19 9 above high normal Not Available [facility] [address] [place], [address], 11/19/2023 20:09:02 11/19/19 24 11/19/2023 LIPID PANEL triglyceride s 221 mg/dL 0-149 above high normal Not Available [facility] [address] [place], [address], 11/19/2023 20:09:02 11/19/19 24 11/19/2023 LIPID PANEL HDL cholesterol 37 mg/dL 40-999 below low normal Not Available [facility] [address] [place], [address], 11/19/2023 20:09:02 11/19/19 24 11/19/2023 LIPID PANEL VLDL cholesterol davey 44 mg/dL 5-40 above high normal Not Available [facility] [address] [place], [address], 11/19/2023 20:09:02 11/19/19 24 11/19/2023 LIPID PANEL LDL chol calc ([facility]) 164 mg/dL 0-99 above high normal Not Available [facility] [address] [place] [address], [address], 11/19/2023 20:09:02 11/19/19 24 11/19/2023 COMP. METAB OLIC PANEL (14) glucose 87 mg/dL 70-99 Not Available [facility] [address] [place] [address], [address], 11/19/2023 20:09:03 11/19/19 24 11/19/2023 COMP. METAB OLIC PANEL (14) BUN 12 mg/dL 6-20 Not Available [facility] [address] [place] [address], [address], 11/19/2023 20:09:03 11/19/19 24 11/19/2023 COMP. METAB OLIC PANEL (14) creatinine 0.83 mg/dL 0.76-1 .27 Not Available [facility] [address] [place] [address], [address], 11/19/2023 20:09:03 11/19/19 24 11/19/2023 COMP. METAB OLIC PANEL (14) eGFR 119 >=60 Units for eGFR value s are mL/mi n/1.7 3 The eGFR Calcu latio n has not been valid ated for patie nts under the age of 18. If test resul ts are displ ayed for a patie nt under the age of 18, disre fred that value . Not Available [facility] [address] [place] [address], [address], 11/19/2023 20:09:03 11/19/19 24 11/19/2023 COMP. METAB OLIC PANEL (14) BUN/creatini ne ratio 15 9-20 Not Available [facility] [address] [place] [address], [address], 11/19/2023 20:09:03 11/19/19 24 11/19/2023 COMP. METAB OLIC PANEL (14) sodium 141 mmol/ L 134-14 4 Not Available [facility] [address] [place], [address], 11/19/2023 20:09:03 11/19/19 24 11/19/2023 COMP. METAB OLIC PANEL (14) potassium 4.8 mmol/ L 3.5-5. 2 Not Available [facility] [address] [place], [address], 11/19/2023 20:09:03 11/19/19 24 11/19/2023 COMP. METAB OLIC PANEL (14) chloride 102 mmol/ L 96-106 Not Available [facility] [address] [place] [address], [address], 11/19/2023 20:09:03 11/19/19 24 11/19/2023 COMP. METAB OLIC PANEL (14) carbon dioxide, total 26 mmol/ L 20-29 Not Available [facility] [address] [place] [address], [address], 11/19/2023 20:09:03 11/19/19 24 11/19/2023 COMP. METAB OLIC PANEL (14) calcium 10.1 mg/dL 8.7-10 .2 Not Available [facility] [address] [place], [address], 11/19/2023 20:09:03 11/19/19 24 11/19/2023 COMP. METAB OLIC PANEL (14) protein, total 8.1 g/dL 6.0-8. 5 Not Available [facility] [address] [place] [address], [address], 11/19/2023 20:09:03 11/19/19 24 11/19/2023 COMP. METAB OLIC PANEL (14) albumin 4.9 g/dL 4.1-5. 1 Not Available [facility] [address] [place] [address], [address], 11/19/2023 20:09:03 11/19/19 24 11/19/2023 COMP. METAB OLIC PANEL (14) globulin, total 3.2 g/dL 1.5-4. 5 Not Available [facility] [address] [place] [address], [address], 11/19/2023 20:09:03 11/19/19 24 11/19/2023 COMP. METAB OLIC PANEL (14) A/G ratio 2.0 1.2-2. 2 Not Available [facility] [address] [place] [address], [address], 11/19/2023 20:09:03 11/19/19 24 11/19/2023 COMP. METAB OLIC PANEL (14) bilirubin, total 0.6 mg/dL 0.0-1. 2 Not Available [facility] [address] [place] [address], [address], 11/19/2023 20:09:03 11/19/19 24 11/19/2023 COMP. METAB OLIC PANEL (14) alkaline phosphatase 98 IU/L 44-121 Not Available [facility] [address] [place] [address], [address], 11/19/2023 20:09:03 11/19/19 24 11/19/2023 COMP. METAB OLIC PANEL (14) AST (SGOT) 28 IU/L 0-40 Not Available [facility] [address] [place] [address], [address], 11/19/2023 20:09:03 11/19/19 24 11/19/2023 COMP. METAB OLIC PANEL (14) ALT (SGPT) 42 IU/L 0-44 Not Available [facility] [address] [place] [address], [address], 11/19/2023 20:09:03 11/19/19 24 11/19/2023 CBC, PLATE LET, NO DIFFE RENTI AL WBC 10.3 x10e3 /uL 3.4-10 .8 Not Available [facility] [address] [place] [address], [place], [address], 11/19/2023 20:09:04 11/19/19 24 11/19/2023 CBC, PLATE LET, NO DIFFE RENTI AL RBC 5.80 x10e6 /uL 4.14-5 .80 Not Available [facility] [address] [place], [address], 11/19/2023 20:09:04 11/19/19 24 11/19/2023 CBC, PLATE LET, NO DIFFE RENTI AL hemoglobin 14.9 g/dL 13.0-1 7.7 Not Available [facility] [address] [place], [address], 11/19/2023 20:09:04 11/19/19 24 11/19/2023 CBC, PLATE LET, NO DIFFE RENTI AL hematocrit 46.8 % 37.5-5 1.0 Not Available [facility] [address] [place], [address], 11/19/2023 20:09:04 11/19/19 24 11/19/2023 CBC, PLATE LET, NO DIFFE RENTI AL MCV 81 fL 79-97 Not Available [facility] [address] [place], [address], 11/19/2023 20:09:04 11/19/19 24 11/19/2023 CBC, PLATE LET, NO DIFFE RENTI AL MCH 25.7 pg 26.6-3 3.0 below low normal Not Available [facility] [address] [place], [address], 11/19/2023 20:09:04 11/19/19 24 11/19/2023 CBC, PLATE LET, NO DIFFE RENTI AL MCHC 31.8 g/dL 31.5-3 5.7 Not Available [facility] [address] [place], [address], 11/19/2023 20:09:04 11/19/19 24 11/19/2023 CBC, PLATE LET, NO DIFFE RENTI AL RDW 13.2 % 11.5-1 4.5 Not Available [facility] [address] [place], [address], 11/19/2023 20:09:04 11/19/19 24 11/19/2023 CBC, PLATE LET, NO DIFFE RENTI AL platelets 305 x10e3 /uL 150-45 0 Mean Plate let Volum e 10.7 fL 8.9-1 2.7 N Not Available [facility] [address] [place], [address], 11/19/2023 20:09:04 11/19/19 24 11/19/2023 CBC, PLATE LET, NO DIFFE RENTI AL NRBC 0 % 0-0 Not Available [facility] [address] [place], [address], 11/19/2023 20:09:04 11/19/19 24 11/20/2023 UA/M W/RFL X PRO DRUMMOND specific gravity 1.029 1.005- 1.030 Not Available [facility] ([facility]) [address] [place], [address], 11/20/2023 07:17:51 11/19/19 24 11/20/2023 UA/M W/RFL X PRO DRUMMOND pH 7.0 5.0-7. 5 Not Available [facility] ([facility]) [address] [place], [address], 11/20/2023 07:17:51 11/19/19 24 11/20/2023 UA/M W/RFL X PRO DRUMMOND urine-color Yellow yellow Not Available [facility] ([facility]) [address] [place], [address], 11/20/2023 07:17:51 11/19/19 24 11/20/2023 UA/M W/RFL X CULTU RE, ROUTI NE appearance Clear clear Not Available [facility] ([facility]) [address] [facility], [place], [address], 11/20/2023 07:17:51 11/19/19 24 11/20/2023 UA/M W/RFL X CULTU RE, ROUTI NE WBC esterase Negati ve negati ve Not Available [facility] ([facility]) [address] [facility], [place], [address], 11/20/2023 07:17:51 11/19/19 24 11/20/2023 UA/M W/RFL X CULTU RE, ROUTI NE protein 1+ negati ve/tra ce abnormal Not Available [facility] ([facility]) [address] [facility], [place], [address], 11/20/2023 07:17:51 11/19/19 24 11/20/2023 UA/M W/RFL X CULTU RE, ROUTI NE glucose Negati ve negati ve Not Available [facility] ([facility]) [address] [place], [address], 11/20/2023 07:17:51 11/19/19 24 11/20/2023 UA/M W/RFL X CULTU RE, ROUTI NE ketones Trace negati ve abnormal Not Available [facility] ([facility]) [address] [place], [address], 11/20/2023 07:17:51 11/19/19 24 11/20/2023 UA/M W/RFL X CULTU RE, ROUTI NE occult blood Negati ve negati ve Not Available [facility] ([facility]) [address] [place], [address], 11/20/2023 07:17:51 11/19/19 24 11/20/2023 UA/M W/RFL X CULTU RE, ROUTI NE bilirubin Negati ve negati ve Not Available [facility] ([facility]) [address] [facility], [place], [address], 11/20/2023 07:17:51 11/19/19 24 11/20/2023 UA/M W/RFL X CULTU RE, ROUTI NE urobilinogen ,semi-qn 0.2 mg/dL 0.2-1. 0 Not Available [facility] ([facility]) [address] [place], [address], 11/20/2023 07:17:51 11/19/19 24 11/20/2023 UA/M W/RFL X CULTU RE, ROUTI NE nitrite, urine Negati ve negati ve Not Available [facility] ([facility]) [address] [facility], [place], [address], 11/20/2023 07:17:51 11/19/19 24 11/20/2023 UA/M W/RFL X CULTU RE, ROUTI NE microscopic examination See below: Micro scopi c was indic ated and was perfo rmed. Not Available [facility] ([facility]) [address] [facility], [place], [address], 11/20/2023 07:17:51 11/19/19 24 11/20/2023 UA/M W/RFL X CULTU RE, ROUTI NE urinalysis reflex Commen t This speci men will not refle x to a Urine Cultu re. Not Available [facility] ([facility]) [address] [facility], [place], [address], 11/20/2023 07:17:51 11/19/19 24 11/20/2023 MICRO SCOPI C EXAMI NATIO N WBC 0-5 /hpf 0-5 Not Available [facility] ([facility]) [address] [facility], [place], [address], 11/20/2023 07:17:51 11/19/19 24 11/20/2023 MICRO SCOPI C EXAMI NATIO N RBC None seen /hpf 0-2 Not Available [facility] ([facility]) [address] [facility], [place], [address], 11/20/2023 07:17:51 11/19/19 24 11/20/2023 MICRO SCOPI C EXAMI NATIO N epithelial cells (non renal) None seen /hpf 0-10 Not Available [facility] ([facility]) [address] [facility], [place], [address], 11/20/2023 07:17:51 11/19/19 24 11/20/2023 MICRO SCOPI C EXAMI NATIO N casts None seen /lpf nonese en Not Available [facility] ([facility]) [address] [facility], [place], [address], 11/20/2023 07:17:51 11/19/19 24 11/20/2023 MICRO SCOPI C EXAMI NATIO N bacteria None seen nonese en/few Not Available [facility] ([facility]) [address] [facility], [place], [address], 11/20/2023 07:17:51 11/30/19 24 12/01/2023 ALBUM IN/CR EATIN INE RATIO ,URIN E creatinine, urine 134.7 mg/dL notest ab. Not Available [facility] ([facility]) [address] [facility], [place], [address], 12/01/2023 13:13:08 11/30/19 24 12/01/2023 ALBUM IN/CR EATIN INE RATIO ,URIN E albumin, urine 15.9 ug/mL notest ab. Not Available [facility] ([facility]) [address] [facility], [place], [address], 12/01/2023 13:13:08 11/30/19 24 12/01/2023 ALBUM IN/CR EATIN INE RATIO ,URIN E alb/creat ratio 12 mg/g_ creat 0-29 Leonela l: 0 - 29 Moder ately incre ased: 30 - 300 Sever edwin incre ased: >300 Not Available [facility] ([facility]) [address] [facility], [place], [address], 12/01/2023 13:13:08 01/13/20 24 01/14/2024 SEDIM ENTAT ION RATE- WESTE RGREN sedimentatio n rate-westerg nannette 26 mm/HR 0-15 above high normal Not Available [facility] ([facility]) [address] [facility], [place], [address], 01/14/2024 06:19:31 01/14/20 24 01/15/2024 D-DIM ER D-dimer 0.32 mg/L_ feu 0.00-0 .49 Accor ding to the assay manuf actur er's publi shed packa ge inser t, a leonela l (<0.5 0 mg/L FEU) D-dim er resul t in conju nctio n with a non-h igh clini davey proba bilit y asses sment , exclu hubert deep vein throm bosis (DVT) and pulmo nary embol ism (PE) with high sensi tivit y. D-dim er value s incre ase with age and this can make VTE exclu cristy of an older popul ation diffi cult. To addre ss this, the Ameri can Colle ge of Physi cians , based on best avail able evide nce and recen t guide lines , recom mends that clini cians use age-a djust ed D-dim er thres holds in patie nts great er than 50 years of age with: a) a low proba bilit y of PE who do not meet all Pulmo nary Embol ism Rule Out Crite bria, or b) in those with inter media te proba bilit y of PE. The formu la for an age-a djust ed D-dim er cut-o ff is age/ 100 . For examp le, a 60 year old patie nt would have an age-a djust ed cut-o ff of 0.60 mg/L FEU and an 80 year old 0.80 mg/L FEU. Not Available [facility] ([facility]) [address] [place], [address], 01/15/2024 11:14:04 02/02/20 24 02/03/2024 SEDIM ENTAT ION RATE- WESTE RGREN sedimentatio n rate-westerg nannette 36 mm/HR 0-15 above high normal Not Available [facility] ([facility]) [address] [place], [address], 02/03/2024 06:19:00 02/02/2002/02/2024 CBC, PLATE LET, NO DIFFE RENTI AL WBC 11.3 x10e3 /uL 3.4-10 .8 above high normal Not Available [facility] ([facility]) [address] [place], [address], 02/03/2024 06:19:00 02/02/2002/02/2024 CBC, PLATE LET, NO DIFFE RENTI AL RBC 5.83 x10e6 /uL 4.14-5 .80 above high normal Not Available [facility] ([facility]) [address] [place], [address], 02/03/2024 06:19:00 02/02/2002/02/2024 CBC, PLATE LET, NO DIFFE RENTI AL hemoglobin 15.0 g/dL 13.0-1 7.7 Not Available [facility] ([facility]) [address] [place], [address], 02/03/2024 06:19:00 02/02/2002/02/2024 CBC, PLATE LET, NO DIFFE RENTI AL hematocrit 45.7 % 37.5-5 1.0 Not Available [facility] ([facility]) [address] [place], [address], 02/03/2024 06:19:00 02/02/2002/02/2024 CBC, PLATE LET, NO DIFFE RENTI AL MCV 78 fL 79-97 below low normal Not Available [facility] ([facility]) [address] [place], [address], 02/03/2024 06:19:00 02/02/2002/02/2024 CBC, PLATE LET, NO DIFFE RENTI AL MCH 25.7 pg 26.6-3 3.0 below low normal Not Available [facility] ([facility]) [address] [place], [address], 02/03/2024 06:19:00 02/02/2002/02/2024 CBC, PLATE LET, NO DIFFE RENTI AL MCHC 32.8 g/dL 31.5-3 5.7 Not Available [facility] ([facility]) [address] [place], [address], 02/03/2024 06:19:00 02/02/2002/02/2024 CBC, PLATE LET, NO DIFFE RENTI AL RDW 13.8 % 11.6-1 5.4 Not Available [facility] ([facility]) [address] [place], [address], 02/03/2024 06:19:00 02/02/2002/02/2024 CBC, PLATE LET, NO DIFFE RENTI AL platelets 301 x10e3 /uL 150-45 0 Not Available [facility] ([facility]) [address] [place], [address], 02/03/2024 06:19:00 02/02/2002/03/2024 VERBA L ORDER see below: Commen t: Pleas e provi de reque sted infor brennan n and fax to [phone]. [place] s requi res a writt en and gurjit d reque st be forwa rded to a labor atory follo wing a verba l order of a labor atory test. Pleas e kristian t us to meet this requi remen t and to compl ete our recor ds. Date: Diagn osis code( s) provi ded for this order : R60.0 Addit ional Diagn osis Code( s):__ _ Pleas e Print ICD-9 /10 Diagn osis Code( s):__ _ Physi alison or Autho rized Desig nee:_ _ Pleas e Print Physi alison or Autho rized Desig nee Signa ture: Your Signa ture Confi chrissie Your Order Of The Test( s) Liste d Not Available [facility] ([facility]) [address] [place], [address], 02/03/2024 13:10:30 02/02/20 24 02/03/2024 VERBA L ORDER additional test(s) requested Commen t: Test( s) added per Dr Lolis sprague at acc nt 02-[address] ns Test# 10430 3 Diffe renti al/To juan WBC Count Test# 87327 7 Track ing Add-O n Not Available [facility] ([facility]) [address] [place], [address], 02/03/2024 13:10:30 02/02/20 24 02/10/2024 WRITT EN AUTHO RIZAT ION written authorizatio n Commen t Lexy en Autho rizat ion Recei alanna. Autho rizat ion recei alanna from DR GEMA SPRAGUE 02-09 Logge [facility] by Larry palmer Not Available [facility] ([facility]) [address] [facility], [place], [address], 02/10/2024 11:14:17 02/02/20 24 02/03/2024 DIFFE RENTI AL/TO JUAN WBC COUNT WBC 11.3 x10e3 /uL 3.4-10 .8 above high normal Not Available [facility] ([facility]) [address] [facility], [place], [address], 02/10/2024 11:14:17 02/02/20 24 02/03/2024 DIFFE RENTI AL/TO JUAN WBC COUNT neutrophils 52 % notest ab. Not Available [facility] ([facility]) [address] [facility], [place], [address], 02/10/2024 11:14:17 02/02/20 24 02/03/2024 DIFFE RENTI AL/TO JUAN WBC COUNT lymphs 32 % notest ab. Not Available [facility] ([facility]) [address] [place], [address], 02/10/2024 11:14:17 02/02/20 24 02/03/2024 DIFFE RENTI AL/TO JUAN WBC COUNT monocytes 7 % notest ab. Not Available [facility] ([facility]) [address] [place], [address], 02/10/2024 11:14:17 02/02/20 24 02/03/2024 DIFFE RENTI AL/TO JUAN WBC COUNT eos 8 % notest ab. Not Available [facility] ([facility]) [address] [place], [address], 02/10/2024 11:14:17 02/02/20 24 02/03/2024 DIFFE RENTI AL/TO JUAN WBC COUNT basos 1 % notest ab. Not Available [facility] ([facility]) [address] [facility], [place], [address], 02/10/2024 11:14:17 02/02/20 24 02/03/2024 DIFFE RENTI AL/TO JUAN WBC COUNT neutrophils (absolute) 5.9 x10e3 /uL 1.4-7. 0 Not Available [facility] ([facility]) [address] [place], [address], 02/10/2024 11:14:17 02/02/20 24 02/03/2024 DIFFE RENTI AL/TO JUAN WBC COUNT lymphs (absolute) 3.6 x10e3 /uL 0.7-3. 1 above high normal Not Available [facility] ([facility]) [address] [place], [address], 02/10/2024 11:14:17 02/02/20 24 02/03/2024 DIFFE RENTI AL/TO JUAN WBC COUNT monocytes(ab solute) 0.8 x10e3 /uL 0.1-0. 9 Not Available [facility] ([facility]) [address] [place], [address], 02/10/2024 11:14:17 02/02/20 24 02/03/2024 DIFFE RENTI AL/TO JUAN WBC COUNT eos (absolute) 0.9 x10e3 /uL 0.0-0. 4 above high normal Not Available [facility] ([facility]) [address] [place], [address], 02/10/2024 11:14:17 02/02/20 24 02/03/2024 DIFFE RENTI AL/TO JUAN WBC COUNT baso (absolute) 0.1 x10e3 /uL 0.0-0. 2 Not Available [facility] ([facility]) [address] [facility], [place], [address], 02/10/2024 11:14:17 02/02/20 24 02/03/2024 DIFFE RENTI AL/TO JUAN WBC COUNT immature granulocytes 0 % notest ab. Not Available [facility] ([facility]) [address] [facility], [place], [address], 02/10/2024 11:14:17 02/02/20 24 02/03/2024 DIFFE RENTI AL/TO JUAN WBC COUNT immature grans (abs) 0.0 x10e3 /uL 0.0-0. 1 Not Available [facility] ([facility]) [address] [facility], [place], [address], 02/10/2024 11:14:17 02/18/20 24 02/19/2024 PROST ATE-S PECIF IC AG prostate specific Ag 0.4 NG/mL 0.0-4. 0 Nicholas ECLIA metho dolog y. Accor ding to the [employer] n, Serum PSA shoul d decre ase and remai n at undet ectab le level s after radic al prost atect gustavo. The AUA defin es bioch emica l recur rence as an initi al PSA value 0.2 ng/mL or great er follo wed by a subse quent confi rmato ry PSA value 0.2 ng/mL or great er. Value s obtai shashi with diffe rent assay metho ds or kits canno t be used inter hammer eably . Resul ts canno t be inter prete d as absol giulia evide nce of the prese nce or absen ce of sue hooks se. Not Available [facility] ([facility]) [address] [facility], [place], [address], 02/19/2024 15:11:33 02/09/20 24 02/09/2024 US, doppl er, arter ial No observ ation record ed. [facility] [address] [place], [address], 02/16/2024 12:11:18 02/10/20 24 02/10/2024 US, doppl er, venou s No observ [facility]ion [facility] ed[email or web address] [address] [place], [address], 02/16/2024 16:24:50 04/11/20 24 04/11/2024 XR, lumba r spine No observ [facility]ion [facility] ed[facility] [address] [place], [address], 04/18/2024 16:00:44 04/28/20 24 04/28/2024 US, renal arter y No observ ation record ed. [email or web address] [facility] [address], [place], [address], 09/06/2024 16:25:56 04/28/20 24 04/28/2024 US, renal arter y No observ ation record ed. [email or web address] [facility] [address], [place], [address], 09/06/2024 16:26:17 04/28/20 24 04/28/2024 US, sadafle x, venou s, lower extre mity No observ ation record ed. [email or web address] [facility] [address], [place], [address], 09/06/2024 16:26:36 04/28/20 24 04/28/2024 US, sadafle x, venou s, lower extre mity No observ ation record ed. [email or web address] [facility] [address], [place], [address], 09/06/2024 16:26:53 04/29/20 24 04/28/2024 trans -thor acic echoc ardio gram (TTE) (PROC ) No observ ation record ed. [email or web address] [facility] [address], [place], [address], 09/06/2024 16:27:11 04/29/20 24 04/28/2024 trans -thor acic echoc ardio gram (TTE) (PROC ) No observ ation record ed. [email or web address] [facility] [address] [facility] [address], [place], [address], 09/06/2024 16:27:26 Result Notes None recorded. Problems Name Problem SNOMED Code Status Onset Date Resolution Date Notes Provider Name and Address Organization Details Recorded Time Chronic low back pain 414814663 Active 2019 JACOBO MARTINEZ Attn: Jaclyn jennifer,[address] [place], [address], [place] [facility] 0 16:20:03 Pain of right wrist 874822544701 100 Active 2019 JACOBO MARTINEZ Attn: Jaclyn rodriguez,[address] [place], [address], [place] [facility] 0 16:20:07 Increased blood pressure 28347786 Active 2019 JACOBO MARTINEZ Attn: Jaclyn rodriguez,[address] [facility], [place], [address], [place] [facility] 0 16:20:10 Hyperlipi demia 59350136 Active 2019 JACOBO MARTINEZ Attn: Jaclyn rodriguez,[address] [place], [address], [place] [facility] 0 08:30:25 Liver enzymes level above reference range 939323849 Active 2019 JACOBO MARTINEZ Attn: Jaclyn rodriguez,[address] [facility], [place], [address], [place] - [facility] 0 08:30:27 Microalbu minuria 306988882 Completed 201902/07/2021 JACOBO MARTINEZ Attn: Jaclyn rodriguez,[address] [facility] [address], [place], [address], [place] [facility] 1 10:13:15 Degenerat ion of lumbar intervert ebral disc 09394440 Active 2021 JACOBO MARTINEZ Attn: Jaclyn rodriguez,[address], [place], [address], [place] [facility] 2 12:02:28 Problem Notes None recorded. Procedures Surgical History Date Name Laterality Status Provider Name and Address Organization Details Recorded Time surgical manipulation of wrist joint completed Isabel Langley MA [place] - [facility] 05/15/2020 15:09:56 drainage of abscess of wright completed Isabel Langley MA PA - [facility] 05/15/2020 15:10:12 Imaging Results Imaging Date Name Status LastModified by Organization Details LastModified Time 02/09/2024 US, doppler, arterial completed [facility] [address] [place], [address], 02/16/2024 12:11:18 02/10/2024 US, doppler, venous completed [facility] [address] [place], [address], 02/16/2024 16:24:50 04/11/2024 XR, lumbar spine completed [facility] [address] [place], [address], 04/18/2024 16:00:44 04/28/2024 US, renal artery completed [email or web address] [facility] [address], [place], [address], 09/06/2024 16:25:56 04/28/2024 US, renal artery completed [email or web address] [facility] [address], [place], [address], 09/06/2024 16:26:17 04/28/2024 US, duplex, venous, lower extremity completed [email or web address] [facility] [address], [place], [address], 09/06/2024 16:26:36 04/28/2024 US, duplex, venous, lower extremity completed [email or web address] [facility] [address], [place], [address], 09/06/2024 16:26:53 04/28/2024 trans-thoracic echocardiogram (TTE) (PROC) completed [email or web address] [facility] [address], [place], [address], 09/06/2024 16:27:11 04/28/2024 trans-thoracic echocardiogram (TTE) (PROC) completed [email or web address] [facility] [address], [place], [address], 09/06/2024 16:27:26 Procedure Notes None recorded. Medical Equipment None Reported. Allergies Allergen ID Allergen Name Allergen Category Reaction Reaction Severity Criticality Documentation Date Start Date Code Code System Note Provider Name and Address Organization Details Recorded Time 444546 Substance with sulfonami de structure and antibacte rial mechanism of action (substanc e) medicatio n hives severe Not available 05/15/2020 52673 [id number] SNOMED Not Available Not Available Not Available Medications Name Sig Start Date Stop Date Status Note LastModified by Organization Details LastModified Time cyclobenzap rine 10 mg tablet TAKE 1 TABLET BY MOUTH EVERY DAY AT BEDTIME 06/06 completed Not Available Not Available Not Available amoxicillin 500 mg capsule TAKE 1 CAPSULE BY MOUTH TWICE DAILY 06/06 completed Not Available Not Available Not Available methocarbam ol 500 mg tablet TAKE 2 TABLETS BY MOUTH EVERY DAY AT BEDTIME FOR 30 DAYS 04/14 completed Not Available Not Available Not Available clindamycin HCl 300 mg capsule TAKE 1 CAPSULE BY MOUTH EVERY 6 HOURS WITH MEALS FOR 7 DAYS 08/12 completed Not Available Not Available Not Available cetirizine 10 mg tablet Take 1 tablet every day by oral route as directed for 10 days. 04/14 completed Not Available Not Available Not Available ibuprofen 800 mg tablet TAKE 1 TABLET BY MOUTH THREE TIMES A DAY NEEDED FOR 30 DAYS 09/01 completed Not Available Not Available Not Available benzonatate 200 mg capsule TAKE 1 CAPSULE BY MOUTH THREE TIMES DAILY NEEDED FOR COUGH 11/19 completed Not Available Not Available Not Available hydrocodone 5 mg-acetamin ophen 325 mg tablet TAKE 1/2 TO 1 TABLET BY MOUTH DAILY NEEDED FOR PAIN active Not Available Not Available No t Available meloxicam 15 mg tablet TAKE 1 TABLET BY MOUTH EVERY DAY AT NOON FOR 30 DAYS 10/20 completed Not Available Not Available Not Available metronidazo le 500 mg tablet TAKE 1 TABLET BY MOUTH TWICE DAILY active Not Available Not Available No t Available amlodipine 5 mg tablet TAKE 1 TABLET BY MOUTH EVERY DAY IN THE MORNING 2023 active Not Available Not Available Not Avai lable doxycycline monohydrate 100 mg tablet TAKE 1 TABLET BY MOUTH TWICE DAILY FOR 7 DAYS 06/06 completed Not Available Not Available Not Available tramadol 50 mg tablet Take 1 tablet twice a day by oral route as needed for 14 days. 01/09 completed Not Available Not Available Not Available losartan 100 mg-hydrochl orothiazide 25 mg tablet TAKE 1 TABLET BY MOUTH EVERY DAY active Not Available Not Available No t Available alprazolam 0.5 mg tablet 05/07 completed Not Available Not Available Not Available amoxicillin 875 mg tablet Take 1 tablet twice a day by oral route as directed for 7 days. 04/14 completed Not Available Not Available Not Available hydrocodone 7.5 mg-acetamin ophen 325 mg tablet TAKE 1 TABLET BY MOUTH EVERY 6 HOURS NEEDED PAIN 05/07 completed Not Available Not Available Not Available lisinopril 10 mg tablet Take 1 tablet every day by oral route in the morning for 30 days. 05/24 completed Not Available Not Available Not Available lidocaine 5 % topical patch APPLY 1 PATCH BY TOPICAL ROUTE ONCE DAILY (MAY WEAR UP TO 12HOURS.) 01/13 completed Not Available Not Available Not Available losartan 25 mg tablet TAKE 1 TABLET BY MOUTH EVERY DAY 02/07 completed Not Available Not Available Not Available diclofenac potassium 50 mg tablet TAKE 1 TABLET BY MOUTH TWICE DAILY active Not Available Not Available No t Available gabapentin 300 mg capsule TAKE 1 CAPSULE BY MOUTH THREE TIMES DAILY NEEDED 09/01 completed Not Available Not Available Not Available diclofenac sodium 75 mg tablet,keesha yed release TAKE 1 TABLET BY MOUTH TWICE DAILY active Not Available Not Available No t Available methylpredn isolone 4 mg tablets in a dose pack Take 1 dose pk by oral route. 06/12 completed Not Available Not Available Not Available losartan 50 mg-hydrochl orothiazide 12.5 mg tablet Take 1 tablet every day by oral route in the morning for 90 days. 10/30 completed Not Available Not Available Not Available fluticasone propionate 50 mcg/actuati on nasal spray,suspe nsion SPARY ONCE IN EACH NOSTRIL 30 MINUTES BEFORE BEDTIME active Not Available Not Available No t Available naproxen 500 mg tablet TAKE 1 TABLET BY MOUTH TWICE DAILY WITH MEALS FOR 14 DAYS 09/01 completed Not Available Not Available Not Available amoxicillin 500 mg-potassiu m clavulanate 125 mg tablet 05/07 completed Not Available Not Available Not Available pregabalin 75 mg capsule TAKE 1 CAPSULE BY MOUTH TWICE DAILY active Not Available Not Available No t Available pregabalin 150 mg capsule TAKE 1 CAPSULE BY MOUTH TWICE DAILY active Not Available Not Available No t Available Vitals Date Recorded Body height Body mass index (BMI) Body weight Oxygen saturation Oxygen saturation in Arterial blood by Pulse oximetry Heart rate Systolic blood pressure Diastolic blood pressure Provider Name and Address Organization Details Last Updated DateTime 4 187.96 cm 39.2 kg/m2 664859. 67 g 97 % 97 % 81 /min 128 mm[Hg] 78 mm[Hg] Michelle Sorto MA [facility] - [facility] 4 10:25:10 Date Recorded Body height Body mass index (BMI) Body weight Oxygen saturation Oxygen saturation in Arterial blood by Pulse oximetry Heart rate Systolic blood pressure Diastolic blood pressure Provider Name and Address Organization Details Last Updated DateTime 4 187.96 cm 40.4 kg/m2 302444. 6 g 96 % 96 % 88 /min 122 mm[Hg] 78 mm[Hg] Michelle Sorto [place] - [facility] 4 09:23:08 Date Recorded Body height Body mass index (BMI) Body weight Oxygen saturation Oxygen saturation in Arterial blood by Pulse oximetry Heart rate Systolic blood pressure Diastolic blood pressure Provider Name and Address Organization Details Last Updated DateTime 4 187.96 cm 40 kg/m2 260266. 03 g 97 % 97 % 77 /min 120 mm[Hg] 76 mm[Hg] Cyndi Erickson MA [facility] 4 11:37:23 Date Recorded Body height Body mass index (BMI) Body weight Oxygen saturation Oxygen saturation in Arterial blood by Pulse oximetry Heart rate Systolic blood pressure Diastolic blood pressure Provider Name and Address Organization Details Last Updated DateTime 4 187.96 cm 39.5 kg/m2 498388. 45 g 99 % 99 % 76 /min 118 mm[Hg] 76 mm[Hg] Michelle Sorto MA [facility] 4 09:54:31 Date Recorded Body height Oxygen saturation Oxygen saturation in Arterial blood by Pulse oximetry Heart rate Body mass index (BMI) Body weight Systolic blood pressure Diastolic blood pressure Provider Name and Address Organization Details Last Updated DateTime 4 187.96 cm 92 % 92 % 79 /min 39.5 kg/m2 980509. 45 g 118 mm[Hg] 78 mm[Hg] Sammie Jane MA [facility] 4 16:46:00 Social History Question Answer Notes LastModified by LuckyPennieizat ion Details LastModified Time Tobacco Smoking Status Former Smoker Isabel Langley MA [facility] 05/15/2020 15:08:37 Do You Have An Advance Directive? No Information not available 02/07/2021 What Is Your Level Of Alcohol Consumption? Occasional Information not available 05/15/2020 What Is Your Level Of Caffeine Consumption? None Information not available 05/15/2020 In The 14 Days Before Symptom Onset, Have You Had Close Contact With A Laboratory-confir med COVID-19 While That Case Was Ill? No Information not available 02/07/2021 In The 14 Days Before Symptom Onset, Have You Had Close Contact With A Person Who Is Under Investigation For COVID-19 While That Person Was Ill? No Information not available 02/07/2021 Have You Been To An Area Known To Be High Risk For COVID-19? No Information not available 02/07/2021 Are You Currently Employed? Yes Information not available 02/07/2021 What Type Of Diet Are You Following? REGULAR Information not available 05/15/2020 Do You Or Have You Ever Used E-cigarettes Or Vape? Never Used Electronic Cigarettes Information not available 05/15/2020 Hard Of Hearing Or Deaf In One Or Both Ears? 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 With Others Information not available 05/15/2020 What Was The Date Of Your Most Recent Tobacco Screening? 06/06/2024 Information not available 06/06/2024 How Many Children Do You Have? 2 Information not available 05/15/2020 What Is Your Relationship Status? Single Information not available 02/07/2021 Are You Sexually Active? Yes Information not available 05/15/2020 Do You Have Smoke And Carbon Monoxide Detectors In Your Home? Yes Information not available 02/07/2021 Are You Passively Exposed To Smoke? No Information no t available 02/07/2021 Do You Or Have You Ever Used Smokeless Tobacco? Never Used Smokeless Tobacco Information not available 05/15/2020 How Much Tobacco Do You Smoke? No Information not available 05/15/2020 General Stress Level Low Information not available 05/15/2020 Do You Use Any Illicit Or Recreational Drugs? No Information not available 02/07/2021 Has Tobacco Cessation Counseling Been Provided? No Information not available 04/14/2023 On What Date Was Tobacco Cessation Counseling Provided? 06/06/2024 Information not available 06/06/2024 Do You Or Have You Ever Used Any Other Forms Of Tobacco Or Nicotine? No Information not available 04/14/2023 Sex: Male Functional Status Question Answer Note LastModified by Organizat ion Details LastModified Time Are you able to care for yourself? Yes Information not available 05/15/2020 What is your exercise level? Occasional Information not available 05/15/2020 Mental Status None recorded. Family History Relationship Description Onset Age of this Age Resolved Age Notes LastModified by Organization Details LastModified Time Father Chronic obstructive pulmonary disease [email or web address] Not available 2019 15:07:44 Father Heart disease [email or web address] Not available 2019 15:07:59 Paternal Grandmother Diabetes mellitus [email or web address] Not available 2019 15:07:53 Medical History Condition Response Coronary Artery Disease N Atrial Fibrillation N High Blood Pressure Y Thyroid Problems N Kidney or Bladder Problems N Depression N COPD N Blood Clots N GI Problems N Skin Problems N Anemia N Heart Attack (NV) N Diabetes N Anxiety Disorder N Muscle, Joint, or Bone Problems Y Seizures/Epilepsy N Acid Reflux (GERD) N Cancer N Stroke N Allergies N Asthma N High Cholesterol Y Hepatitis N Liver Disease N Headaches N Osteoporosis N Heart Failure N Immunizations Vaccine Type Date Status Note Provider Nam e and Address Organization Details Recorded Time Hib, unspecified formulation 01/26/1996 completed DONALDO [place], [place] - [facility] 04/13/2023 10:44:05 Hib, unspecified formulation 09/18/1993 [place] [facility] 04/13/2023 10:44:05 MMR 01/26/1996 monico Pen[place], [place] [facility] 04/13/2023 10:44:05 MMR 08/09/1997 [place] [facility] 04/13/2023 10:44:05 DTP 01/26/1996 monico [place] [facility] 04/13/2023 10:44:05 DTP 07/02/1994 monico [place] [facility] 04/13/2023 10:44:05 DTP 08/09/1997 monico [place] [facility] 04/13/2023 10:44:06 DTP 08/18/1996 DONALDO [place] [facility] 04/13/2023 10:44:06 DTP 09/18/1993 DON[place]DO [place] [facility] 04/13/2023 10:44:06 OPV 01/26/1996 monico [place] [facility] 04/13/2023 10:44:06 OPV 07/02/1994 [place] [facility] 04/13/2023 10:44:06 OPV 08/09/1997 monico Saraviashaw DONALDO ling, DEBORAH - [facility] 04/13/2023 10:44:06 OPV 08/18/1996 completed Felicia SaraviashDONALDO [place]z, [place] - [facility] 04/13/2023 10:44:06 OPV 09/18/1993 completed Felicia Saraviacarmelita DONALDO ling, DEBORAH - [facility] 04/13/2023 10:44:06 Hep B, adolescent or pediatric 05/22/2003 completed Felicia Saraviashaw DONALDO ling, DEBORAH - [facility] 04/13/2023 10:44:06 Hep B, adolescent or pediatric 08/09/1997 completed Felicia SaraviashDONALDO florez, DEBORAH - [facility] 04/13/2023 10:44:06 Hep B, adolescent or pediatric 08/18/1996 completed Felicia SaraviashawDONALDO, DEBORAH - [facility] 04/13/2023 10:44:06 Past Encounters Encounter ID Performer Location Encounter Start Date Encounter Closed Date Diagnosis/Indication Diagnosis SNOMED-CT Code Diagnosis ICD10 Code Diagnosis Note [id number] JACOBO MARTINEZ (Adult Med) [address] [place] [id number] 05/15/2020 14:53:12 05/16/2020 11:25:46 Increased blood pressure 06476261 R03.0 Pt has been told at various locations that he has had high blood pressure ~ 140/110He denies any symptoms of VELÁSQUEZ, dizziness, or lightheade dness. BP Today: 136/86Disc ussed DASH dietAdvise d 30 minutes of exercise minimum daily Advised tobacco, alcohol, caffeine all increase BP Advised goal for BP is <140/90 Contact office if BP is > 140/90 consistent ly DIscussed consequenc es of HTN including kidney, eye, heart damage, stroke, and even - due to borderline HTN today and reports of elevated blood pressure in the past, we agreed on starting a medication today- Ordered Lisinopril 10 mg qD- Follow up in 1 month Pain of right wrist 3169 001832 17002 M25.531 Intermitte nt R sided wrist pain that began 1 yearHe types regularly at workHe has noticed that some things will slip out of his hands, and he has numbness and tingling in the 2nd and 3rd digitsOn PE: pt has positive finkelstei n and phalen's test without any point tenderness and full ROM.DDx: tenosynovi tis vs carpal tunnel syndrome vs mix- Ordered wrist brace with thumb spica at night- Ordered ibuprofen 800 mg BID- Provided the pt. with carpal tunnel and tenosynovi tis care instructio ns and exercises Abnormal urine 792275146 R82.90 Bubbles/fr othy urine noted while on float trip by family memberPt denies dysuria, hematuria, penile discharge, or concern for STI- Ordered UA for evaluation Adult heal th examination [id number] Z00.00 Pt is here to establish careHe has not seen a PCP in ~14 yearsPHQ 12/11 was negative in office today (0 out of 27)He has not eaten since 6:30 am this morning- Ordered CBC, CMP, Lipid panel, and Hem A1c for routine screening evaluation s Chronic low back pain 27 9689543 M54.5 Hx of Bulging discs on previous MRI 6 years agoThe pt is doing well with manueverin g around specific movements that aggravate pain at this time and is not interested in chronic medication for this at this time- Will continue to monitor [id number] JACOBO MARTINEZ (Adult Med) [address] [place] [address] 08/28/2020 14:55:14 08/29/2020 08:39:56 Increased blood pressure 02626214 R03.0 Reports elevated BP readings at home, but states it might be the machine as his brother had similar readings.B P in office today: 116/78. Recheck bp: 127/87 Started him on lisinopril , he was complainin g of dry cough after a couple weeks of taking medication Switched to Losartan 25 mg on 05/24. Denies any side effects.De nies headaches, vision changes, chest pain.- continue with Losartan. Will refill medication - will provided him with new bp cuff. Advised him to continue monitoring his bp.- encouraged health lifestyle changes- Advised goal for BP is <140/90 - Contact office if BP is > 140/90 consistent ly Liver enzy mes level above reference range 709375560 R74.8 AST 53 and ALT 78Occasion al alcohol intake (10 x's a year)Frequ ent tylenol use for back painBMI 37Abnormal lab findings likely due to fatty liver. Will rule out other concerning diagnoses first.- encouraged lifestyle changes- will repeat labs- will order hepatitis panel Chronic low back pain 27 0106612 M54.5 Hx of Bulging discs on previous MRI 6 years agoComplet ed physical therapy in the past, and received steroid injections .Takes tylenol or OTC Ibuprofen as needed with no relief.Tri ed muscle relaxers, but states they make him feel drowsy and did not help pain.Rates pain 3/10, but can increase to a 9/10 with activities .Admits to intermitte nt numbness/t ingling radiating down the back of his right leg.TTP of lumbar spine and right paraspinal tenderness on exam.Infor med patient since it has been 6 years since last imaging we would need to obtain current imaging of his spine.- Will order x-ray of lumbar spine to re-evaluat e- In the meantime, continue to use OTC NSAIDs for pain relief, heat, and stretching - Continue to apply heat Microalbuminuria 1701766 06 R80.9 Trace protein seen in UA at last visitHx of uncontroll ed HTN- will recheck labs- continue Losartan [id number] JACOBO MARTINEZ (Adult Med) [address] [place] [phone] 10/04/2020 08:50:32 10/05/2020 09:24:44 Allergic rhinitis 79505204 J30.9 Over the past few days, he has been experienci ng clear rhinorrhea , dry nose especially after blowing his nose, pruritus to the roof of his mouth, and sneezing.H e has not tried anything to help his symptoms at home.No known history of seasonal allergies. Denies fever, chills, nasal congestion , ear pain, sore throat, and headaches. - will start daily allergy medication for now to see if this helps, once symptoms improve, consider using allergy medication PRN during season changes or when symptoms develop- encouraged to use humidifier at home at night in bedroom to help with dry nasal mucosa [id number] JACOBO MARTINEZ (Adult Med) [address] [place] [phone] 01/08/2021 08:36:00 01/08/2021 12:15:13 [id number] JACOBO MARTINEZ (Adult Med) [address] [place] [id number] 02/07/2021 09:58:48 02/08/2021 15:46:28 Increased blood pressure 42264815 R03.0 BP in office today: 150/100 L arm and 148/102 R arm Currently taking losartan 25 mg qd Recent dental procedure cancelled due to BP reading of 180/108, notes he forgot to take his medication that morning BP at home: usually 130-80 but can jump up to 160-90/100 when he is stressed or angry. Denies headache, pressure behind eyes, vision changes, chest pain, SOB, and heart palpitatio ns. He needs a form filled out saying he is cleared for dental procedure today. - will increase BP medication from Losartan 25 mg to Losartan 50-HCTZ 12.5 mg qd - Advised him to continue monitoring his bp especially the next few days before his procedure, if new medication causes hypotensio n - I encouraged him to take 2 tablet of Losartan 25 mg at home instead - encouraged health lifestyle changes - Advised goal for BP is <140/90 - Contact office if BP is > 140/90 consistent ly or <100/70 Hyperlipidemia 29251468 E78.5 08/2020: Total 213, tri 222, HDL 36, and LDL 133 ASCVD risk is 2.6% - no need to start medication now - consider lifestyle management - due for repeat in 3 months [id number] JACOBO MARTINEZ (Adult Med) [address] [place] [phone] 05/07/2021 09:16:24 05/09/2021 11:19:56 Increased blood pressure 01414163 R03.0 BP in office today: 120/80 Currently taking losartan 50 - hctz 12.5 mg qd Denies headache, pressure behind eyes, vision changes, chest pain, SOB, and heart palpitatio ns. - c/w Losartan 50-HCTZ 12.5 mg qd Hyperlipidemia 20572612 E78.5 05/2020: Total 213, tri 222, HDL 36, and LDL 133 ASCVD risk is 2.6% - continue with lifestyle management - will recheck today Liver enzy mes level above reference range 980242529 R74.8 AST 53 and ALT 78. Negative hepatitis panel.Occa sional alcohol intake (10 x's a year)Frequ ent tylenol use for back painBMI 37.2Abnorm al lab findings likely due to fatty liver.- will repeat labs Chronic low back pain 27 6494545 M54.5 Hx of Bulging discs on previous MRI 8 years agoComplet ed physical therapy in the past, and received steroid injections .Takes tylenol or OTC Ibuprofen as needed with no relief.Tri ed muscle relaxers, but states they make him feel drowsy and did not help pain.Rates pain 4-5/10, but can increase to a 9/10 with activities . States pain is getting worse.Has not completed PT again yet because has been busy, plans to complete this monthAdmit s to intermitte nt numbness/t ingling radiating down the back of his right leg.TTP of lumbar spine and right paraspinal tenderness on exam.Xray: disc space narrowing at L5-S1- provided him with contact informatio n for PT- In the meantime, continue to use medication for pain relief, heat, and stretching - short course of steroid to help- f/u after PT, if no improvemen t, plan for MRI [id number] JACOBO MARTINEZ (Adult Med) [facility] [place] [address] 09/11/2021 10:18:28 09/11/2021 11:23:49 Chronic low back pain [id number] M54.50 Hx of Bulging discs on previous MRI 8 years agoComplet ed physical therapy in the past, and received steroid injections .Takes tylenol or OTC Ibuprofen as needed with no relief.Tri ed muscle relaxers, but states they make him feel drowsy and did not help pain.Rates pain 4-5/10, but can increase to a 9/10 with activities . States pain is getting worse.Has not completed PT again yet because has been busy, plans to complete this monthAdmit s to now constant numbness/t ingling radiating down the lateral and posterior aspect of his right leg. Denies fever, chills, ataxia, changes in bladder and bowel movements. TTP of lumbar spine and right paraspinal tenderness on exam. Positive straight leg raise on the R.Xray: disc space narrowing at L5-S1- provided him with contact informatio n for PT- switch diclofenac to naproxen for possible better benefit, start gabapentin PRN for pain, and short course of tramadol PRN for pain since nothing else seems to be helping- In the meantime, continue to use medication for pain relief, heat, and stretching - f/u after PT, if no improvemen t, plan for MRI Increased blood pressure [id number] R03.0 BP in office today: 122/80 Currently taking losartan 50 - hctz 12.5 mg qd Denies headache, pressure behind eyes, vision changes, chest pain, SOB, and heart palpitatio ns. - c/w Losartan 50-HCTZ 12.5 mg qd [id number] JACOBO MARTINEZ [facility] (Adult Med) [address] [place] [address] 10/30/2021 09:32:38 10/31/2021 10:45:23 Chronic low back pain [id number] M54.50 Hx of Bulging discs on previous MRI 8 years agoComplet ed physical therapy in the past, and received steroid injections .Takes tylenol or OTC Ibuprofen as needed with no relief.Tri ed muscle relaxers, but states they make him feel drowsy and did not help pain.He stopped the gabapentin because it was causing an upset stomach.Ra rob pain 4-5/10, but can increase to a 9/10 with activities . Notes pain is getting progressiv edwni worse. He finished 6 weeks of PT last week, notes PT did not help nor make his pain worse. Admits to continued constant numbness/t ingling radiating down the lateral and posterior aspect of his right leg. Denies fever, chills, ataxia, changes in bladder and bowel movements. On PE: TTP of lumbar spine and right paraspinal tenderness on exam. Positive straight leg raise on the rightXray: disc space narrowing at L5-S1- since no improvemen t with PT, MRI of lumbar spine ordered today- he would like to hold off on additional medication for now until imaging is completed- In the meantime, continue to use medication for pain relief, heat, and stretching Essential hypertension [id number] I10 BP Today: 130/90 and 140/90c/w losartan 50 mg - hctz 12.5 mg dailyAdmit s to getting some elevated BP readings at home over the last few weeks - increase BP medication - track BP at home especially due to dose change today- RTC 6 months for BP check Depression screening 171 [id number] Z13.31 PHQ 12/11 was negative in office today (1 out of 27) [id number] JACOBO MARTINEZ (Adult Med) [address] [place] [address] 01/09/2022 10:43:42 01/13/2022 11:47:05 Degeneration of lumbar intervertebral disc [id number] M51.36 Hx of Bulging discs on previous MRI 8 years agoComplet ed physical therapy in the past, and received steroid injections .Takes tylenol or OTC Ibuprofen as needed with no relief.Tri ed muscle relaxers, but states they make him feel drowsy and did not help pain.He stopped the gabapentin because it was causing an upset stomach.Ra rob pain 4-5/10, but can increase to a 9/10 with activities . Notes pain is getting progressiv edwin worse. He finished 6 weeks of PT last week, notes PT did not help nor make his pain worse. Admits to continued constant numbness/t ingling radiating down the lateral and posterior aspect of his right leg. Denies fever, chills, ataxia, changes in bladder and bowel movements. On PE: TTP of lumbar spine and right paraspinal tenderness on exam. Positive straight leg raise on the rightXray: disc space narrowing at L5-S1MRI 12/27/2021: Spondylosi s and degenerati ve changes to lumbar spine, most significan t at L5-S1 on R side consistent with patient's symptoms - neuro surgery referral given- In the meantime, continue to use medication for pain relief, heat, and stretching - start pain med and supportive care meds PRN for relief until pt can get into the neuro surgeon Increased blood pressure [id number] R03.0 BP in office today: 138/84At home: 140-160s/8 0s-100s (pt only checks bp at home when he is having a headache)C urrently taking losartan 100 - hctz25 mg qd Denies headache, pressure behind eyes, vision changes, chest pain, SOB, and heart palpitatio ns. - c/w Losartan 100-HCTZ 25 mg qd- start amlodipine 5 mg daily Headache [id number] R51.9 Been having more frequent occipital headaches over the last 3 weeks, they have been daily recently and do no seem to improve with ibuprofen or tylenol.Velásquez s checked his BP when his headaches are most severe, BP was 169/108 at its highest. Admits to BP usually running around 140-150/85 -90 at home even with his medication . Admits to being in pain more often and not sleeping well at night due to the pain.- will work on controllin g pain better- plan to increased BP medication to better control BP, keep eye on BP [id number] JACOBO MARTINEZ (Adult Med) [address] [place] [address] 03/03/2022 10:43:13 03/04/2022 13:45:02 Degeneration of lumbar intervertebral disc [id number] M51.36 Saw neurology at [facility] a few weeks ago. X-rays were performed and previous MRI was reviewed. Neurologshanti henry would like to do steroid injections , if not effective lumbar fusion. Next visit with neurologshanti henry is March 19. Has been taking Takes hydrocodon e-acetamin ophen and gabapentin . Hx of Bulging discs on previous MRI 8 years agoComplet ed physical therapy in the past, and received steroid injections .Takes tylenol or OTC Ibuprofen as needed with no relief.Tri ed muscle relaxers, but states they make him feel drowsy and did not help pain.Takes gabapentin Rates pain 5/10, but can increase to a 10/10 with activities . Notes pain is getting progressiv edwin worse. Has completed 6 weeks of PT-did not help nor make his pain worse. Admits to continued constant numbness/t ingling radiating down the lateral and posterior aspect of his right leg. Denies fever, chills, ataxia, changes in bladder and bowel movements. On PE: TTP of lumbar spine and right paraspinal tenderness on exam. Positive straight leg raise on the rightXray: disc space narrowing at L5-S1MRI 12/27/2021: Spondylosi s and degenerati ve changes to lumbar spine, most significan t at L5-S1 on R side consistent with patient's symptoms - steroid injections with neurology March 19- continue gabapentin 300 mg- start meloxicam 15 mg tablet- will refill hydrocodon e 5mg-acetam inophen 325 mg on March 21- Continue to use medication for pain relief, heat, and stretching Essential hypertension [id number] I10 BP in office today: 128/70 Currently taking losartan 100 - hctz25 mg qd, amlodipine 5mg qAM Denies headache, pressure behind eyes, vision changes, chest pain, SOB, and heart palpitatio ns. - c/w Losartan 100-HCTZ 25 mg qd- c/w amlodipine 5 mg daily Morbid obesity [id number] E66.01 Advised decreased portion sizes, good food choices, limited eating out or fast food and eliminate soda and juice from diet. Advised physical activity daily and offered encouragem ent to continue with positive changes made so far. [id number] JACOBO MARTINEZ [facility] (Adult Med) [address] [place] [address] 07/21/2022 09:34:48 07/22/2022 09:02:21 Degeneration of lumbar intervertebral disc [id number] M51.36 He saw neurology at [facility] a few months ago. X-rays were performed and previous MRI was reviewed. Neurologis t rec. steroid injections first and then if no improvemen t, lumbar fusion. He states the MRI plus injections would be too costly for him at this time. Surgery also would be too expensive. He plans to continue with supportive care for now. He states the muscle relaxers work but does not take often because they leave him very drowsy the next day. Takes hydrocodon e-acetamin ophen and gabapentin . Also takes tylenol or ibuprofen OTC. Hx of Bulging discs on previous MRI 8 years agoTakes tylenol or OTC Ibuprofen as needed with no relief.Neil es gabapentin Rates pain 5/10, but can increase to a 10/10 with activities . Notes pain is getting progressiv edwin worse. Has completed 6 weeks of PT-did not help nor make his pain worse. Admits to continued constant numbness/t ingling radiating down the lateral and posterior aspect of his right leg. Denies fever, chills, ataxia, changes in bladder and bowel movements. On PE: TTP of lumbar spine and right paraspinal tenderness on exam. Positive straight leg raise on the rightXray: disc space narrowing at L5-S1MRI 12/27/2021: Spondylosi s and degenerati ve changes to lumbar spine, most significan t at L5-S1 on R side consistent with patient's symptoms - c/w meds for supportive care for now since can not afford injections or surgery- continue gabapentin 300 mg- c/w meloxicam 15 mg tablet- try methocarba mol instead of baclofen- c/w hydrocodon e 5mg-acetam inophen 325 mg PRN for severe pain- Continue to use medication for pain relief, heat, and stretching Essential hypertension 89300978 I10 BP in office today: 116/80 Currently taking losartan 100 - hctz25 mg qd, amlodipine 5mg qAM Denies headache, pressure behind eyes, vision changes, chest pain, SOB, and heart palpitatio ns. - c/w Losartan 100-HCTZ 25 mg qd- c/w amlodipine 5 mg daily Morbid obesity [id number] E66.01 Advised decreased portion sizes, good food choices, limited eating out or fast food and eliminate soda and juice from diet. Advised physical activity daily and offered encouragem ent to continue with positive changes made so far. 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 He needed surgery at [facility] to clean infection and bone. He remembers being treated with clindamyci n at the time to tx the infection. Never had issues with leg after tx until this past week when he developed mild R lower leg swelling near his surgical scar and also erythema and mild pain near scar. He took his 's clindamyci n at home and states his symptoms resolved. His leg is feeling back to normal today.- appears normal on exam- provided him with clindamyci n for home just in case erythema starts again, contact us again if symptoms return [id number] JACOBO MARTINEZ (Adult Med) [address] [place] [address] 10/20/2022 08:47:22 10/21/2022 10:21:09 Degeneration of lumbar intervertebral disc [id number] M51.36 Neurology at [facility] completed X-rays and MRI. Neurologis t rec. steroid injections first and then if no improvemen t, lumbar fusion. He states the MRI plus injections would be too costly for him at this time. Surgery also would be too expensive. He plans to continue with supportive care for now. Methocarbo mol plus the gabapentin at night work well and allow him good sleep, no longer feels drowsy with the new muscle relaxer. Takes hydrocodon e-acetamin ophen and gabapentin ., he states the pain medication only seems to last him a few hours at work. Admits to taking a new promotion for the money but does admit to it being more physically demanding. Also takes tylenol or ibuprofen OTC. Hx of Bulging discs on previous MRI 8 years agoTakes tylenol or OTC Ibuprofen as needed with no relief.Neil es gabapentin Rates pain 5/10, but can increase to a 10/10 with activities . Notes pain is getting progressiv edwin worse. Has completed 6 weeks of PT-did not help nor make his pain worse. Admits to continued constant numbness/t ingling radiating down the lateral and posterior aspect of his right leg. Denies fever, chills, ataxia, changes in bladder and bowel movements. On PE: TTP of lumbar spine and right paraspinal tenderness on exam. Positive straight leg raise on the rightXray: disc space narrowing at L5-S1MRI 12/27/2021: Spondylosi s and degenerati ve changes to lumbar spine, most significan t at L5-S1 on R side consistent with patient's symptoms - c/w meds for supportive care for now since can not afford injections or surgery- continue gabapentin 300 mg- c/w IBU 800 mg PRN, meloxicam was not working- c/w methocarba mol- c/w hydrocodon e 5mg-acetam inophen 325 mg PRN for severe pain, plan to give 45 tabs at next fill. Pain contract signed. UDS ordered today, needs to be completed before next fill.- Continue to use medication for pain relief, heat, and stretching Morbid obesity [id number] E66.01 Advised decreased portion sizes, good food choices, limited eating out or fast food and eliminate soda and juice from diet. Advised physical activity daily and offered encouragem ent to continue with positive changes made so far. Liver enzy mes level above reference range 492100836 R74.8 AST 53 and ALT 78. Negative hepatitis panel.Occa sional alcohol intake (10 x's a year)Frequ ent tylenol use for back painBMI 37.2Abnorm al lab findings likely due to fatty liver.- will repeat labs Hyperlipidemia 04555859 E78.5 05/2020: Total 213, tri 222, HDL 36, and LDL 133 ASCVD risk is 2.6% - continue with lifestyle management - will recheck today [id number] JACOBO MARTINEZ (Adult Med) [address] [place] [address] 01/13/2023 09:39:01 01/14/2023 09:46:29 Degeneration of lumbar intervertebral disc 72971059 M51.36 Hx of Bulging discs on previous MRI 8 years agoComplet ed physical therapy in the past, and received steroid injections .Baclofen caused him to be drowsy. Methocarba mol helped for a few months, no longer seems to work. Pain medication helps for about 4 hours.Rate s pain 4-5/10, but can increase to a 9/10 with activities . Notes pain is getting progressiv edwin worse. He finished 6 weeks of PT again recntly, notes PT did not help nor make his pain worse. Admits to continued constant numbness/t ingling radiating down the lateral and posterior aspect of his right leg. Denies fever, chills, ataxia, changes in bladder and bowel movements. On PE: TTP of lumbar spine and right paraspinal tenderness on exam. Positive straight leg raise on the rightXray: disc space narrowing at L5-S1MRI 12/27/2021: Spondylosi s and degenerati ve changes to lumbar spine, most significan t at L5-S1 on R side consistent with patient's symptoms - recently saw neurosurge ry, discussed possible surgery but patient states he did not ask enough questions regarding time off of work, etc. so is wondering if he can still ask those questions. Encouraged him to call neurosurge ry team and schedule f/u or speak with nurse- had a long discussion about pain medication , he has tried and failed every type of therapy. He understand s the risk of tolerance and dependence to these meds. Plan to increase up to 45 tablets per month for now.- pain contract signed 10/14/2022 , UDS completed 12/2022- can try 1500 mg of methocarba mol at night- f/u in 3 months Morbid obesity [id number] E66.01 Advised decreased portion sizes, good food choices, limited eating out or fast food and eliminate soda and juice from diet. Advised physical activity daily and offered encouragem ent to continue with positive changes made so far. Essential hypertension 61588817 I10 BP in office today: 116/76 Currently taking losartan 100 - hctz25 mg qd, amlodipine 5mg qAM Denies headache, pressure behind eyes, vision changes, chest pain, SOB, and heart palpitatio ns. - c/w Losartan 100-HCTZ 25 mg qd- c/w amlodipine 5 mg daily Laceration of left thumb [id number] S61.012A ER last last week, almost cut the top of my fingertip off . He cut his left thumb at work and went to [facility]. Wound was glued closed.Dev eloped pus and erythema, went back to the ER for possible infection and was sent home with clindamyci n.Wound is looking much better today with the help of antibiotic s. States it seems to be healing well. Denies pain or numbness/t ingling to the left thumb.- continue with abx- continue to monitor wound- reach out if needed Depression screening 171 264581 Z13.31 PHQ 2/9 was negative in office today (0 out of 27) [id number] JACOBO MARTINEZ (Adult Med) [address] [place] [address] 04/14/2023 09:19:41 04/15/2023 17:02:04 Obesity 858539096 E66.9 BMI 36.7-Discu ssed lifestyle modificati ons including 150 minutes moderate intensity exercise per week, restrictin g intake of fast/proce ssed foods, sweets, sugary beverages. Essential hypertension 69129570 I10 BP in office today: 114/78 Currently taking losartan 100 - hctz25 mg qd, amlodipine 5mg qAM Denies headache, pressure behind eyes, vision changes, chest pain, SOB, and heart palpitatio ns. - c/w Losartan 100-HCTZ 25 mg qd- c/w amlodipine 5 mg daily Degenerati on of lumbar intervertebral disc 04684596 M51.36 Hx of Bulging discs on previous MRI 8 years agoComplet ed physical therapy in the past, and received steroid injections .Baclofen caused him to be drowsy. Methocarba mol helped for a few months, no longer seems to work. Pain medication helps for about 4 hours.Rate s pain 4-5/10, but can increase to a 9/10 with activities . Notes pain is getting progressiv edwin worse. He finished 6 weeks of PT again recntly, notes PT did not help nor make his pain worse. Admits to continued constant numbness/t ingling radiating down the lateral and posterior aspect of his right leg. Denies fever, chills, ataxia, changes in bladder and bowel movements. On PE: TTP of lumbar spine and right paraspinal tenderness on exam. Positive straight leg raise on the rightXray: disc space narrowing at L5-S1MRI 12/27/2021: Spondylosi s and degenerati ve changes to lumbar spine, most significan t at L5-S1 on R side consistent with patient's symptoms - Recently saw neurosurge ry in 2021, discussed possible surgery but patient states he did not ask enough questions regarding time off of work, etc. so is wondering if he can still ask those questions. Encouraged him to call neurosurge ry team and schedule f/u or speak with nurse - phone number was given to patient today- had a long discussion about pain medication , he has tried and failed every type of therapy. He understand s the risk of tolerance and dependence to these meds. Plan to c/w 45 tablets per month- pain contract signed 10/14/2022 , UDS completed 12/2022- Continue cyclobenza brodie 10 mg tablet at night- f/u in 3 months Depression screening 171 550810 Z13.31 PHQ 2/9 was negative in office today (0 out of 27) [id number] JACOBO MARTINEZ (Adult Med) [address] [place] [address] 05/25/2023 08:48:32 05/26/2023 09:37:54 Pain in right heel [id number] 399193 M79.671 Right heel pain x2 weeksNot tried OTC NSAIDsPEx Pena neg., point tenderness at posterior calcaneus, FROMDenies edema, erythema, ecchymosis , or trauma- Plan to stretch the area, RICE after work, use NSAIDs and if pain persists for 2 weeks after these modificati ons R foot XR to r/o fx Obesity 020148111 E66.9 BMI 36.7-Discu ssed lifestyle modificati ons including 150 minutes moderate intensity exercise per week, restrictin g intake of fast/proce ssed foods, sweets, sugary beverages. Atypical chest pain 1025 84791 R07.89 Pt reports the pain lasted less than 30 seconds and believes it was a muscle painEducat ed pt on concerning signs of chest pain and if these sx occur head to the ED for evaluation Depression screening 171 866279 Z13.31 PHQ 05/25/23 was 0 [id number] JACOBO MARTINEZ (Adult Med) [address] [place] [address] 09/01/2023 14:53:41 09/02/2023 10:23:26 Essential hypertension 18858279 I10 BP in office today: 132/76 Currently taking losartan 100 - hctz25 mg qd, amlodipine 5mg qAM Denies headache, pressure behind eyes, vision changes, chest pain, SOB, and heart palpitatio ns. - c/w Losartan 100-HCTZ 25 mg qd- c/w amlodipine 5 mg daily Degenerati on of lumbar intervertebral disc 06570460 M51.36 Hx of Bulging discs on previous MRI 8 years agoComplet ed physical therapy in the past, and received steroid injections .Baclofen caused him to be drowsy. Methocarba mol helped for a few months, no longer seems to work. Pain medication helps for about 4 hours.Rate s pain 4-5/10, but can increase to a 9/10 with activities . Notes pain is getting progressiv edwin worse. Completed PT again recently, notes PT did not help nor make his pain worse. Admits to continued constant numbness/t ingling radiating down the lateral and posterior aspect of his right leg. Denies fever, chills, ataxia, changes in bladder and bowel movements. Xray: disc space narrowing at L5-S1MRI 12/27/2021: Spondylosi s and degenerati ve changes to lumbar spine, most significan t at L5-S1 on R side consistent with patient's symptoms Recently followed-u p with neurosurge ry regarding surgical interventi on. Patient decided the risks outweighed the benefits and declined surgical interventi on- Long discussion about pain medication , he has tried and failed every type of therapy. He understand s the risk of tolerance and dependence to these meds.- Pain contract signed 10/14/2022 , UDS completed 12/2022- Can start Vicodin BID. Plan for 60 tablets/mo nth.- Will try Lyrica 75 mg BID to aid with neuropathy - Stop gabapentin at this time- Continue cyclobenza brodie 10 mg tablet at night Obesity 194998938 E66.9 BMI 36.7-Discu ssed lifestyle modificati ons including 150 minutes moderate intensity exercise per week, restrictin g intake of fast/proce ssed foods, sweets, sugary beverages. [id number] MD Pollo Duggan (Adult Med) [address] [place] [phone] 11/19/2023 10:12:09 11/20/2023 14:52:37 Obesity 892418632 E66.9 Essential hypertension 28538994 I10 Blood pressure is good today. Tolerating medication well. Continue current medication s. Is overdue for blood work and urine. Is fasting today so will have that done. Follow up in three months. Discussed DASH diet. Degenerati on of lumbar intervertebral disc 31237530 M51.36 Has appointmen t with neurosurge on for second opinion in December. Had extensive discussion regarding concern about chronic regular use of narcotics. I explained that I would like him to try to avoid aggravatin g activities first. We are also going to try to increase the Lyrica to see if this helps his pain. I told him to avoid taking the Hydrocodon e on a routine basis due to its potential for addiction, even if he does not intend for that to happen. I advised him to only take it if needed and to use it sparingly. I told him that once he gets the second opinion a decision regarding treatment will need to be made and then, if he decides not to have surgery, a specialist will need to manage any narcotic pain treatment. Follow up in three months. Body mass index 30+ - obesity 963146076 Z68.39 Discussed the importance of healthy diet, especially with his activity limitation s due to his back. [id number] MD Pollo Duggan (Adult Med) [address] [place] [phone] 01/13/2024 09:11:09 01/22/2024 09:41:38 Edema of right lower limb 896988496 R60.0 ER records reviewed. Wells criteria score 1. Pretest probabilit y for DVT intermedia te risk. D-dimer not helpful. Ultrasound done in ER negative for DVT. Check Sed rate due to history of osteomyeli tis. Elevate extremity and wear compressio n stalking. Will let him know test result. Seek medical attention if worse. Follow up in one week. Can repeat ultrasound if doesn't resolve and no other explanatio n. [id number] MD Pollo Duggan (Adult Med) [address] [place] [address] [phone] 02/02/2024 11:30:30 02/05/2024 14:35:35 Edema of lower extremity [id number] R60.0 Edema of right lower extremity. No evidence of DVT. Etiology uncertain. No obvious varicositi es or venous disease. Will get vascular studies. Repeating CBC and Sed rate today. Patient has history of osteomyeli tis. If CBC is elevated consider bone scan to look for recurrence of osteomyeli tis since no other clear infectious etiology. Also consider Abdominal CT for possible mass that is causing compressio n leading to swelling. [id number] MD Pollo Duggan (Adult Med) [address] [place] [address] [phone] 02/18/2024 09:45:36 02/19/2024 09:04:40 Obesity [id number] E66.9 Nocturia 141473475 R35.1 Low back pain [id number] M54.50 Edema of l ower extremity [id number] R60.0 CT to evaluate for mass creating pressure which could cause lymphedema and extremity swelling. Will switch the CT to [facility] since has been too large for CT at [place] in the past. Has an appointmen t with vascular in a couple of weeks. Will follow up with me in three to four weeks and let me know if there are any changes. Continue to wear compressio n stalking. [id number] MD Pollo Duggan (Adult Med) [address] [place] [address] [phone] 06/06/2024 16:22:40 06/08/2024 21:12:35 Body mass index 30+ - obesity [id number] Z68.39 Essential hypertension 04321330 I10 Blood pressure is good today. Tolerating medication well. Continue current medication s. Will be due for repeat blood work and urine in November. Is fasting today so will have that done. Follow up in three months. Discussed DASH diet. Venous stasis [id number] I 87.8 Venous stasis of lower extremity. Controlled with compressio n stalkings. Degenerati on of lumbar intervertebral disc [id number] M51.36 I told the patient I can no longer give him narcotics. He is taking Ibuprofen OTC and he is trying to loose weight. I gave him a referral to [facility] neurosurge ry. I explained that I am concerned that if he continues taking narcotics for his pain and sees that as an option he could end up addicted to opioids, and I do not think that is a treatment option for him. I would like him to find out the options from the neurosurge on, and if he is not comfortabl e going forward, he can return here to discuss the options further. Hyperlipidemia [id number] E78.5 Patient needs repeat lipid panel done. Will return for fasting blood work. Health Concerns Section Related Observation LastModified by Organization Detai ls LastModified Time None Recorded Concern Status LastModified by Organization Details LastModified Time None Recorded Advance Directives Directive N: Payers Encounter Date Sequence Insurance Name Policy Number Policy Rousseau Covered Member ID Rousseau Member ID Guarantor Name 11/19/2023 1 [employer] (PPO) [id number] García Sandoval [id number] García Sandoval 01/13/2024 1 [employer]) [id number] García Sandoval [id number] García Sandoval 02/02/2024 1 [employer] (PPO) [id number] García Sandoval [id number] García Sandoval 02/18/2024 1 [employer] (PPO) [id number] García Sandoval [id number] García Sandoval 06/06/2024 1 [employer] (PPO) [id number] García Sandoval [id number] García Sandoval Notes Date Note Type Note Provider Name and Address Organization Details Recorded Time 11/19/2023 text/html needs med refill s, has back pain, has problems with five discs, one is pressing on sciatic nerve, has seen a neurosurgeon but was getting a second opinion, has appointment on January 19 or , one opinion was that they could remove disc and use cement, also has high blood pressure, has been well controlled, has been on medication about a year, 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, no shortness of breath, no headaches, no blood in urine, has been a couple years since blood work, did not eat or drink this morning, non smoker, no alcohol, had Staph infection in leg as a child and had seven surgeries, history of boxer's fracture, drink coffee, doesn't eat fast food or fried food, moving company, 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, sometimes short staffed, grandmother diabetic, dad kidney and lung disease Gema Amaya MD Attn: Accounting, [address] [place], [address], [facility] 11/19/2023 11:06:29 01/13/2024 text/html follow up ER visit, went Thursday, right leg swollen, did x-ray and ultrasound, did blood work, did not see blood clot, noticed swelling after work Thursday, after at work for awhile swollen and it looks worse, elevates it when home and it is better, back to normal after work, sometimes slight throbbing, can't tell if sciatica, no shortness of breath, no treatment, compression stalkings, no long car trips or flights in last six months, history of sciatica, [age] had bad pain in right leg and had osteomyelitis, was going to amputate leg, slight pain in same scar area, did x-rays which were normal, 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, 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, no immobilization, no history of DVT, Gema Amaya MD Attn: Accounting, [address] [facility], [place], [address], [facility] 01/20/2024 09:32:44 02/02/2024 text/html follow up of swelling, continues to have swelling right lower extremity, better when elevates it, went back to [place] ER, had CT scan, they think it is cellulitis, was given doxycycline, took it for seven days, has been a week since finished it, it is getting worse again, sometimes it throbs, Thursday it was hurting, when took socks and shoes off toes were purple Gema Amaya MD Attn: Accounting, [address], [place], [address], [facility] 02/02/2024 18:30:33 02/18/2024 text/html had to prop legs up the other day to get boot off because swollen, got compression sock which helps, after awhile heel is sore, no open skin, no redness, never warm, swelling from knee down, not higher and ends about midfoot in arch, heel is where most of discomfort is, no abdominal or pelvic pain, if walks does not have calf pain, no constipation or diarrhea, no night sweats, sees vascular specialist on the seventh, sciatica on right side, gets pain in glutes on right side down to heel, Lyrica helps, occasional numbness in right leg maybe a handful in ten years, weakness probably less than twenty times in the last ten years, pain in bottom of spine, pain in bottom and last xray was a long time ago, no prostate issues in the family, Gema Amaya MD Attn: Accounting, [address] , [place], [address], [facility] 02/18/2024 13:45:39 06/06/2024 text/html follow up right leg swelling, fter seeing vascular specialist and having multiple tests done was diagnosed within varicose veins, wearing compression stalkings, there were issues with his neurosurgery appointment so he was not seen, he said there were issues with getting his paperwork filled out so they would not see him, he now has a [facility] referral for a neurosurgeon and that is where he wants to go, he just got the referral the end of last week, he has not made the appointment yet, he has spoken to a neurosurgeon before and spoke with Stephany about it and did not want to do the procedure because of the risk involved, trying to loose weight Gema Amaya MD Attn: Accounting, [address] , [place], [address], [facility] 06/06/2024 18:24:29
--- OUTSIDE RECORDS SUMMARY | 2025-02-01 16:45 | XMS_ITS | Clinical Summary ---
Author Organization [facility] Address [address] [place] [address] Care Team Providers Care Washroom Attendant Name Role Phone Stephany Gardiner Primary Care Provider [phone] Allergies Active Allergy Reactions Criticality Noted Date Comments Sulfa Unknown 01/20/2024 Medications amLODIPine (NORVASC) 5 mg tablet 01/09/2022 Active cyclobenzaprine (FLEXERIL) 10 mg tablet 01/09/[address] (VOLTAREN) 75 mg EC tablet 01/09/2022 Active gabapentin (NEURONTIN) 300 mg capsule 01/09/2022 Active HYDROcodone-cyndy taminophen (NORCO) 5-325 mg per tablet 02/19/2022 Activ e losartan-hydroc hlorothiazide (HYZAAR) 100-25 mg per tablet Take 1 tablet by mouth every morning 01/25/2022 Active Active Problems No known active problems Encounters Date Type Department Care Team Description 12/06/2024 Telephone [facility] Scheduling [address] [place] [address] Lorraine Laboy from Last 3 Months Surgical History Surgery Date Site/Laterality Comments HAND SURGERY LEG SURGERY Medical History Medical History Date Comments Asthma Disc disorder of lumbar region Family History Medical History Relation Name Comments Heart disease Father Hypertension Father Relation Name Status Comments Father Social History Tobacco Use Types Packs/Day Years Used Date Smoking Tobacco: Never Smokeless Tobacco: Never Alcohol Use Standard Drinks/Week Comments Not Currently 0 (1 standard drink = 0.6 oz pur e alcohol) Personal Safety Answer Date Recorded Have you ever been in or are you currently in a harmful physical or emotional relationship or is someone making you feel afraid or unsafe? 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 Not on file Not on file Obstetrics History Last Filed Vital Signs Vital Sign Reading Time Taken Comments Blood Pressure 144/84 01/20/2024 1:54 PM CDT Pulse 81 01/20/2024 1:54 PM CDT Temperature 36.3 C (97.4 F) 01/20/2024 1:54 PM CDT Respiratory Rate 16 01/20/2024 1:54 PM CDT Oxygen Saturation 94% 01/20/2024 1:54 PM CDT Inhaled Oxygen Concentration - - Weight 140.6 kg (310 lb) 01/20/2024 1:54 PM CDT Height 188 cm (6' 2 ) 01/20/2024 1:54 PM CDT Body Mass Index 39.8 01/20/2024 1:54 PM CDT Plan of Treatment Health Maintenance Due Date Last Done Comments Depression Screening 1991 Hepatitis C Screening 1991 DTaP/Tdap/Td Vaccine (6 - Tdap) 2002 08/09/1997, 08/18/1996, 01/26/1996, Additional history exists Varicella Vaccines (1 of 2 - 13+ 2-dose series) 2004 Regular Well Visit/Exam 18-64 2009 Influenza Vaccine (Season Ended) 2025 Hepatitis B Screening Completed 05/22/2003 , 08/09/1997, 08/18/1996 HPV Vaccines Aged Out No longer eligi ble based on patient's age to complete this topic Pneumococcal vaccine <65 Aged Out No longer eligible based on patient's age to complete this topic Insurance AETNA [facility] PPO ALLIED BENEFITS AETNA AETNA CARE OTHER AETNA [facility] [employer] IN Care Teams Washroom Attendant Relationship Specialty Start Date End Date Stephany Gardiner PA [address] [place] [address] PCP - General Physician Plan Examiner 01/20/22
--- OUTSIDE RECORDS SUMMARY | 2025-02-01 16:45 | XMS_ITS | Referral Summary ---
Author Organization [facility] Address [address] [place] [address] Care Team Providers Care Linoleum Tile Floor Layer Name Role Phone Stephany Gardiner Primary Care Provider [phone] Encounters Date Type Department Care Team Description 12/06/2024 Telephone [facility] Scheduling [address] [place] [address] Lorraine Laboy from Last 3 Months Allergies Active Allergy Reactions Criticality Noted Date [...] Active Active Problems No known active problems Social History Tobacco Use Types Packs/Day Years [...] on file 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
[2025-02-01 17:29] LABS: Basophils Absolute Auto 0.1 K/mm3 (0.0-0.1); Basophils Percent Auto 1.2 % (0.2-1.2); Eosinophils Absolute Auto 0.7 K/mm3 (0-0.3); Eosinophils Percent Auto 7.7 % (0-4.4); Hematocrit 40.3 % (42.0-52.0); Hemoglobin 13.5 g/dL (14.0-18.0); Immature Granulocyte Absolute 0.02 K/mm3 (0.00-0.031); Immature Granulocyte Percent A 0.2 % (0-0.5); Lymphocytes Absolute Auto 2.58 K/mm3 (0.9-3.2); Lymphocytes Percent Auto 30.7 % (18.3-44.2); Mean Corpuscular HGB Conc 33.5 g/dl (32-36); Mean Corpuscular Hemoglobin 26.9 pg (26-34); Mean Corpuscular Volume 80.3 fl (80-100); Mean Platelet Volume 10.3 fl (7.4-10.4); Monocytes Absolute Auto 0.5 K/mm3 (0.1-0.6); Monocytes Percent Auto 6.4 % (2.6-8.5); Neutrophils Absolute Auto 4.5 K/mm3 (1.3-6.7); Neutrophils Percent Auto 53.8 % (45.5-73.1); Platelet Count Result 241 k/mm3 (150-375); Red Blood Count 5.02 M/mm3 (4.6-6.20); Red Cell Distribution Width 13.7 % (11.5-14.5); White Blood Count 8.4 K/mm3 (4.5-10.0)
--- OUTSIDE RECORDS SUMMARY | 2025-02-01 17:38 | XMS_ITS | Clinical Summary ---
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
--- OUTSIDE RECORDS SUMMARY | 2025-02-01 17:38 | XMS_ITS | CONTINUITY OF CARE DOCUMENT ---
Author Name luisito pegnjacqueline Address Unknown Organization [facility] Address [address] [place] [address] Phone [phone] Care Team Providers Care Pediatric Allergist Name Role Phone Brian LAINEZ, Nkechi Unavailable [phone] Gema Cassidy MD Unavailable GEMA CASSIDY MD Unavailable [phone] PROBLEMS Condition Status Date Provider Notes Hypertension active Yefri Clinton Hyperlipidemia completed - Nkechi Torres MD Lower extremity edema, right leg active Cody Torres MD Family hx of heart disease active Nkechi lee MD ENCOUNTERS Date Type Provider Location Encounter Diag nosis - In-person encounter Office Visit Nkechi Torres MD [facility] - In-person encounter Office Visit Nkechi Torres MD [facility] HyperlipidemiaLower extremity edema, right legFamily hx of heart disease VITAL SIGNS Date Observation Value Provider Body Mass Index (Ratio) 39.80 kg/m2 Sukhjinder Torres MD blood pressure, cuff size large Alonzo Macias blood pressure, diastolic 78 mm[Hg] Alonzo Macias blood pressure, systolic 122 mm[Hg] Sergey Macias [...] pressure, systolic 125 mm[Hg] [facility] pulse rate 69 /min Wyatt y oxygen saturation, oximetry 97 % [facility] height E&M 74 [in_i] Wyatt y respiratory rate E&M 14 /min [facility] weight E&M 310 [lb_av] Wyatt y ALLERGIES [...] Yefri Pacheco i cigarette use yes [facility] Former smoker [facility] ricardo INSURANCE PROVIDERS Payer name Policy type / Coverage type Rahel red republican ID ALLIED BENEFITS INS Commercial insurance company [id number] ADVANCE DIRECTIVES Name Date DISCUSSED - NO DECISION MADE TREATMENT PLAN Date Name Performer Cardiology: O rders: V enous Doppler Bilateral LE - Reflux (CPT-08362) C omplete Echo (14355) R enal Artery Duplex (CPT-71307) Yefri Clinton Cardiology: O rders: E KG (CPT-00308) C omplete Echo (23263) R enal Artery Duplex (CPT-15820) BP today: 125/87 Yefri Clinton Date Name Renal Artery Duplex Complete Echo Venous Doppler Bilat eral LE - Reflux HISTORY OF PROCEDURES Procedure Date Procedure Name Provider Procedure Notes S tatus EKG Nkechi Torres MD completed
--- OUTSIDE RECORDS SUMMARY | 2025-02-01 17:38 | XMS_ITS | Clinical Summary ---
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
--- OUTSIDE RECORDS SUMMARY | 2025-02-01 17:38 | XMS_ITS | Referral Summary ---
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
[2025-02-01 17:42] LABS: Alanine Aminotransferase 55 U/L (6-50); Albumin Level 4.6 g/dL (3.5-5.1); Alkaline Phosphatase 66 U/L (38-126); Anion Gap 11 mmol/L (4-12); Aspartate Amino Transferase 38 U/L (17-59); Blood Urea Nitrogen 11 mg/dL (9-20); Calcium 9.4 mg/dL (8.4-10.2); Carbon Dioxide 23 mmol/L (22-30); Chloride 106 mmol/L (98-107); Estimated CRCL calculation 160 ml/min; Estimated Glomerular Filt Rate > 60; Glucose 110 mg/dL (65-110); Potassium 3.9 mmol/L (3.4-5.0); Sodium 140 mmol/L (137-145)
[2025-02-01 17:51] LABS: NT Pro B Type Natriuretic Pept 239 pg/mL (19.9-100)
--- NOTE | 2025-02-01 17:52 | ED.EXTPRO ---
HPI - Extremity Problem General Chief complaint: Extremity Problem,Nontraumatic Stated complaint: swelling legs Time Seen by Provider: 02/01/25 17:09 Source: patient Mode of arrival: ambulatory Limitations: no limitations History of Present Illness HPI Narrative: This is a 34-year-old male that presents to the emergency department for bilateral lower extremity edema. Reports he has been out of his losartan/HCTZ. It is currently at the pharmacy, he just needs to pick it up. Denies chest pain, shortness of breath. Related Data Home Medications ?Medication ?Instructions ?Recorded ?Confirmed ?Last Taken ?Type losartan 100 tablet 11/27/21 11/26/21 History mg-hydrochlorothiazide 25 mg tablet omega-3 fatty acids-vitamin E cap 11/27/21 11/26/21 History 1,000 mg capsule Allergies Allergy/AdvReac Type Severity Reaction Status Date / Time Sulfa (Sulfonamide Allergy Mild Rash Verified 11/08/23 05:47 Antibiotics) Review of Systems Review of Systems: CONSTITUTIONAL: Denies fever CARDIOVASCULAR: Reports edema. Denies chest pain RESPIRATORY: Denies dyspnea. All systems reviewed & are unremarkable except as noted in HPI and below PMFSH Past Medical History Medical History Hand fracture, right MRSA (methicillin resistant Staphylococcus aureus) right lower leg Osteomyelitis Pneumonia Surgical History Surgical History History of orthopedic surgery right hand, right leg Social History Social History Smoking packs per day: 1 Smoking cigarettes per day: 20.0 Years smoked: 8 Smoking pack-years: 8.00 Smoking status: Former smoker Tobacco type: cigarettes Exam Narrative: GENERAL: Well-appearing, well-nourished, and in no acute distress. HEAD: Normocephalic, atraumatic. EYES: EOMI. CHEST: Clear to auscultation. No respiratory distress. No wheezes rales or rhonchi HEART: Regular rate and rhythm. No murmur heard. Normal peripheral pulses. EXTREMITIES: Normal range of motion. Non-pitting edema of the bilateral lower extremities without overlying redness. Normal DP pulse. Normal sensation SKIN: Warm, dry, no rash. NEURO: No focal deficits. Alert and oriented x3. PSYCH: Normal mood and affect Course Course Emergency Course: patient updated on his workup and agrees with plan of care Vital Signs Vital signs: Vital Signs Temperature 97.4 F L 02/01/25 16:34 Pulse Rate 62 02/01/25 16:34 Respiratory Rate 18 02/01/25 16:34 Blood Pressure 158/90 H 02/01/25 16:34 Pulse Oximetry 97 02/01/25 16:34 Oxygen Delivery Room Air 02/01/25 16:34 Temperature 97.4 F L 02/01/25 16:34 Pulse Rate 62 02/01/25 16:34 Respiratory Rate 18 02/01/25 16:34 Blood Pressure 158/90 H 02/01/25 16:34 Pulse Oximetry 97 02/01/25 16:34 Oxygen Delivery Room Air 02/01/25 16:34 MDM - Extremity (Nontraumatic) MDM Narrative Medical decision making narrative: Patient presents to the emergency department for bilateral lower extremity edema. Reports he has been out of his losartan/HCTZ. CBC and metabolic panel without concerning findings. BNP is not concerningly elevated. Chest x-ray without acute cardiopulmonary abnormality. Patient does report his medications at the pharmacy, he will pick it up tonight. Encouraged to elevate his legs while seated and wear compression stockings. He is to follow up with PCP Differential Diagnosis Differential diagnosis: Likely cellulitis, lower extremity edema and other (CHF, venous insufficiency) Lab Data Attestation: I reviewed the patient's lab results. 02/01/25 17:24 02/01/25 17:24 Labs: Lab Results 02/01/25 Range/Units 17:24 WBC 8.4 (4.5-10.0) K/mm3 RBC 5.02 (4.6-6.20) M/mm3 Hgb 13.5 L (14.0-18.0) g/dL Hct 40.3 L (42.0-52.0) % MCV 80.3 (80-100) fl MCH 26.9 (26-34) pg MCHC 33.5 (32-36) g/dl RDW 13.7 (11.5-14.5) % Plt Count 241 (150-375) k/mm3 MPV 10.3 (7.4-10.4) fl Immature Gran % (Auto) 0.2 (0-0.5) % Neut % (Auto) 53.8 (45.5-73.1) % Lymph % (Auto) 30.7 (18.3-44.2) % [place] % (Auto) 6.4 (2.6-8.5) % Eos % (Auto) 7.7 H (0-4.4) % Baso % (Auto) 1.2 (0.2-1.2) % Lymph # (Auto) 2.58 (0.9-3.2) K/mm3 [place] # (Auto) 0.5 (0.1-0.6) K/mm3 Eos # (Auto) 0.7 H (0-0.3) K/mm3 Baso # (Auto) 0.1 (0.0-0.1) K/mm3 Abs Immat Gran (auto) 0.02 (0.00-0.031) K/mm3 Absolute Neuts (auto) 4.5 (1.3-6.7) K/mm3 Absolute Nucleated RBC 0.000 (0.0-0.012) K/mm3 Nucleated RBC % 0.0 (0.0-0.2) % Sodium 140 (137-145) mmol/L Potassium 3.9 (3.4-5.0) mmol/L Chloride 106 (98-107) mmol/L Carbon Dioxide 23 (22-30) mmol/L Anion Gap 11 (4-12) mmol/L BUN 11 D (9-20) mg/dL Creatinine 0.86 (0.7-1.3) mg/dL Estim Creat Clear Calc 160 ml/min Estimated GFR > 60 (59 - ) Glucose 110 (65-110) mg/dL Calcium 9.4 (8.4-10.2) mg/dL Total Bilirubin 1.0 (0.2-1.3) mg/dL AST 38 (17-59) U/L ALT 55 H (6-50) U/L Alkaline Phosphatase 66 (38-126) U/L NT-Pro-B Natriuret Pep 239 H (19.9-100) pg/mL Total Protein 8.0 (6.3-8.2) g/dL Albumin 4.6 (3.5-5.1) g/dL Imaging Data Radiologist's impression: ITS Impressions Chest X-Ray 02/01/25 17:38 IMPRESSION: No focal infiltrate or effusion. Critical Care Time Critical Care Time Critical Care Time: No Discharge Plan Discharge Clinical Impression: Bilateral lower extremity edema Patient Disposition: Home, Self-Care Condition: Stable Instructions: Leg Edema (ED) Additional Instructions: Return to the emergency department if you experience fever, chest pain, shortness of breath, weakness, numbness, or any other symptoms that are concerning to you. Take your blood pressure medications as prescribed. Wear compression stockings. Elevate the legs while seated Follow up with your primary care doctor Patient Language: South [place]ese Prescriptions: No Action doxycycline monohydrate 100 mg tablet 100 mg PO BID 7 Days Qty: 14 0RF losartan-hydrochlorothiazide 100-25 mg tablet Fish Oil 1,000 mg Capsule albuterol sulfate 90 mcg/actuation HFA aerosol inhaler 2 puff inhalation QID PRN (Reason: shortness of breath or wheezing) Qty: 6.7 0RF benzonatate 200 mg capsule 200 mg PO TID PRN (Reason: cough) Qty: 21 0RF ondansetron 4 mg tablet,disintegrating 4 mg PO Q8H PRN (Reason: nausea and vomiting) Qty: 10 0RF Follow-up/Referrals: Farroll,Gema Brennan MD [Primary Care Provider] -
== END 2025-02-01 18:01 | disposition home or self-care (01) ==
PROVIDERS: Emergency Provider Physician Assistant; PCP Emergency Medicine
DX: R60.0 Localized edema (principal); Z87.891 Personal history of nicotine dependence
CPT/HCPCS: 36415; 71046; 80053; 83880; 85025; 99283

== ENCOUNTER 2025-04-29 18:54 | Emergency (ER) | payer OTHER, SELFPAY ==
[2025-04-29 19:23] VITALS: BP 158/89; PULSE 70; RESP 16; TEMP 36.4; O2SAT 98
--- NOTE | 2025-04-29 22:03 | PC.NURSE ---
Pt threw c-collar on desk, states I'm out of here, not waiting. Attempted to redirect pt back to waiting area. Pt then walked out of ED.
== END 2025-04-29 22:29 | disposition left against medical advice (07) ==
LOC: ANHED 22:20
PROVIDERS: PCP Emergency Medicine
DX: S09.90XA Unspecified injury of head, initial encounter (principal); V28.49XA Other motorcycle driver injured in noncollision transport accident in traffic accident, initial encounter
CPT/HCPCS: 99199